=== PATIENT | male | born 1960 | race African-American/Black ===

== ENCOUNTER 2016-05-02 12:47 | Inpatient (IN) | payer OTHER ==
[2016-05-02 15:17] VITALS: BMI 28.3
[2016-05-02] MEDS ORDERED: LOPERAMIDE HCL 2 MG CAPSULE PO PRN (16:19)
[2016-05-02] MEDS ORDERED: ACETAMINOPHEN 325 MG TABLET (FP) PO PRN (16:19)
[2016-05-02] MEDS ORDERED: guaiFENesin/D-METHORPHAN HB 10 ML UNIT-DOSE CUPS PO PRN (16:19)
[2016-05-02] MEDS ORDERED: MAG HYDROX/AL HYDROX/SIMETH 30 ML UNIT-DOSE CUP PO PRN (16:19)
[2016-05-02] MEDS ORDERED: MENTHOL/PHENOL 1 EACH UD MM PRN (16:19)
[2016-05-02] MEDS ORDERED: P-EPHED 60MG/TRIPROLIDI 2.5MG TABLET PO PRN (16:19)
[2016-05-02] MEDS ORDERED: NICOTINE POLACRILEX 2 MG GUM BUC PRN (16:19)
[2016-05-02] MEDS ORDERED: hydrOXYzine PAMOATE 50 MG CAPSULE (FP) PO PRN (16:19)
[2016-05-02] MEDS ORDERED: IBUPROFEN 400 MG TABLET (FP) PO PRN (16:19)
[2016-05-02] MEDS ORDERED: MAGNESIUM CITRATE 300 ML BOTTLE PO PRN (16:19)
[2016-05-02] MEDS ORDERED: MAGNESIUM HYDROX 2400MG/30ML ORAL SUSPENSION 30 ML CUP PO PRN (16:19)
[2016-05-02] MEDS ORDERED: ALBUTEROL SO4 6.7 GM HFA INHALER IH PRN (16:21)
--- NOTE | 2016-05-02 16:28 | HP ---
Admission [facility] Chief Complaint: admitted for inpatient rehab from cocaine Allergies/Adverse Reactions: Allergies Allergy/AdvReac Type Severity Reaction Status Date / Time No Known Allergies Allergy Verified 05/02/16 16:01 History of Present Illness: 55 yo m with h/o opioid dependence on MMTP 180mg daily, last date of medication today, HIV+ not taking medicatons, Hep c+, HTN, DM, depression, epigastric hernia, knee arthritis, chronic low back pain, s/p CVA residual weakness and aphasia, nicotine dependence 1/2 PPD, was last admitted for treatment at [facility] last year for cocaine dependence relapsed to daily use and wishes to attend rehab again. no h/o seizures, no alcohol or other illicit drug use reported. Exam Limitations: No Limitations, Language Barrier, Other (difficult to undertand patient) - Ebola screening Have you traveled outside of the country in the last 21 days: No Have you had contact with anyone from an Ebola affected area: No Have you been sick,other than usual withdrawal symptoms: No Do you have a fever: No - Review of Systems Constitutional: No Symptoms Reported EENT: reports: No Symptoms Reported Respiratory: reports: No Symptoms reported Cardiac: reports: No Symptoms Reported GI: reports: No Symptoms Reported : reports: No Symptoms Reported Musculoskeletal: reports: Back Pain, Joint Pain (knee and back pain), Other ( unable to walk unassisted , uses walker) Integumentary: reports: No Symptoms Reported Neuro: reports: No Symptoms reported Endocrine: reports: No Symptoms Reported Hematology: reports: No Symptoms Reported Psychiatric: reports: Judgement Intact, Mood/Affect Appropiate, Orientated x3, Anxious, Depressed Other Systems: Reviewed and Negative Patient History - Patient Medical History Hx Anemia: Yes (on iron) Hx Asthma: Yes (on albuterol inhaler) Hx Chronic Obstructive Pulmonary Disease (COPD): No Hx Cancer: No Hx Cardiac Disorders: No Hx Congestive Heart Failure: No Hx Hypertension: Yes (on med) Hx Hypercholesterolemia: Yes (on med) Hx Pacemaker: No HX Cerebrovascular Accident: Yes (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) Hx Seizures: No Hx Dementia: No Hx Diabetes: Yes (on metformin) Hx Gastrointestinal Disorders: No Hx Liver Disease: Yes (hepatitis c) Hx Genitourinary Disorders: No Hx Sexually Transmitted Disorders: No Hx Renal Disease (ESRD): No Hx Thyroid Disease: No Hx Human Immunodeficiency Virus (HIV): Yes (since 1985) Hx Hepatitis C: Yes Hx Depression: Yes (on med) Hx Suicide Attempt: No Hx Bipolar Disorder: No Hx Schizophrenia: No - Patient Surgical History Past Surgical History: Yes Hx Neurologic Surgery: No Hx Cataract Extraction: No Hx Cardiac Surgery: No Hx Lung Surgery: No Hx Breast Surgery: No Hx Breast Biopsy: No Hx Abdominal Surgery: Yes (appendectomy at age of 8) Hx Appendectomy: No Hx Cholecystectomy: No Hx Genitourinary Surgery: No Hx Section: No Hx Orthopedic Surgery: No Other Surgical History: left inguinal hernia repair at age of 44 Anesthesia Reaction: No - PPD History Date: 05/06/15 - Reproductive History Patient is a Female of Child Bearing Age (11 -55 yrs old): No Patient : No - Smoking Cessation Smoking history: Current every day smoker Have you smoked in the past 12 months: Yes Aproximately how many cigarettes per day: 10 Cigars Per Day: 0 Hx Chewing Tobacco Use: No Initiated information on smoking cessation: Yes 'Breaking Loose' booklet given: 05/02/16 - Substance & Tx. History Hx Alcohol Use: No Hx Substance Use: Yes Substance Use Type: Cocaine, Heroin Hx Substance [facility] - Substances Abused Cocaine Route: Smoking Frequency: Daily Date of Last Use: 05/01/16 Family Disease History - Family Disease History Family Disease History: Diabetes: Mother (alcohol,), Other: Father ( alcohol,dsa), Mother Admission Physical Exam BHS - Vital Signs Vital Signs: Vital Signs - 24 hr 05/02/16 15:15 Temperature 98.2 F Pulse Rate 65 Respiratory 20 Rate Blood Pressure 118/57 - Physical General Appearance: Yes: No Apparent Distress, Nourished, Appropriately Dressed , Disheveled, Anxious HEENTM: Yes: Within Normal Limits, EOMI, Hearing grossly Normal, Normal ENT Inspection, Normocephalic, Normal Voice, DENICE, Pharynx Normal Respiratory: Yes: Within Normal Limits, Chest Non-Tender, Lungs Clear, Normal Breath Sounds, No Respiratory Distress, No Accessory Muscle Use Neck: Yes: Within Normal Limits, No masses,lesions,Nodules, Supple, Trachea in good position Breast: Yes: Breast Exam Deferred Cardiology: Yes: Within Normal Limits, Regular Rhythm, Regular Rate, S1, S2 Abdominal: Yes: Within Normal Limits, Normal Bowel Sounds, Non Tender, Flat, Soft Genitourinary: Yes: Within Normal Limits Back: Yes: Within Normal Limits, Normal Inspection Musculoskeletal: Yes: full range of Motion, Gait Steady, Pelvis Stable, Back pain, Joint Stiffness Extremities: Yes: Within Normal Limits, Normal Capillary Refill, Normal Inspection, Normal Range of Motion, Other (knee pain) Integumentary: Yes: Within Normal Limits, Normal Color, Dry, Warm Lymphatic: Yes: Within Normal Limits - Diagnostic (1) Cocaine dependence Current Visit: Yes Status: Chronic Qualifiers: Substance use status: uncomplicated Qualified Code(s): F14.20 - Cocaine dependence, uncomplicated Comment: . (2) Hypercholesterolemia Current Visit: No Status: Acute Comment: . (3) Major depressive disorder, recurrent, moderate Current Visit: No Status: Chronic Comment: . (4) Methadone maintenance therapy patient Current Visit: Yes Status: Chronic (5) Nicotine dependence Current Visit: Yes Status: Chronic Comment: . (6) Substance induced mood disorder Current Visit: Yes Status: Acute Comment: . (7) Type 2 diabetes mellitus Current Visit: Yes Status: Chronic Qualifiers: Diabetes mellitus complication status: without complication (8) Use of cane as ambulatory aid Current Visit: Yes Status: Chronic Comment: . (9) CVA, old, hemiparesis Current Visit: No Status: Chronic Comment: . (10) Epigastric hernia Current Visit: No Status: Chronic Comment: . (11) HIV (human immunodeficiency virus infection) Current Visit: Yes Status: Chronic Comment: . (12) Hepatitis C Current Visit: Yes Status: Chronic Comment: . Cleared for Admission [facility] - Detox or Rehab Claeared for Rehab Admission: Yes [facility] Breath Alcohol Content Breath Alcohol Content: 0 Urine Drug Screen - Results Drug Screen Negative: No Urine Drug Screen Results: LYLE-Cocaine, MTD-Methadone
[2016-05-02] MEDS ORDERED: TUBERCULIN PPD 5 TU/0.1ML VIAL ID ONE (19:28)
[2016-05-02] MEDS: NICOTINE 14 MG/24 HOURS TOPICAL PATCH TD SCH (19:30)
--- NOTE | 2016-05-02 20:03 | PN ---
[facility] Progress Note Note: received pharmacist CALL PROVIDER ORDER METFORMIN 850 MG PO DAILY HOME MED SHOWN METFORMIN 850 MG PO DAILY THE STAIN WIPER RECOMMEND FURTHER CLARIFICATION CAN BE MADE DIRECTLY WITH THE PROVIDER WHO ORDER THE METFORMIN 850 MG PO DAILY
[2016-05-02 20:29] LABS: URINE APPEARANCE CLEAR; URINE BILIRUBIN NEGATIVE (NEGATIVE); URINE BLOOD NEGATIVE (NEGATIVE); URINE COLOR YELLOW; URINE GLUCOSE (UA) NEGATIVE (NEGATIVE); URINE KETONE NEGATIVE (NEGATIVE); URINE LEUK ESTERASE NEGATIVE (NEGATIVE); URINE NITRITE NEGATIVE (NEGATIVE); URINE PROTEIN NEGATIVE (NEGATIVE); URINE UROBILINOGEN 4.0 E.U/dl E.U./dl (0.2-1.0)
[2016-05-02] MEDS: THIAMINE HCL 100 MG TABLET (FP) PO SCH (21:22)
[2016-05-02] MEDS ORDERED: diphenhydrAMINE HCL 50 MG CAPSULE PO PRN (22:00)
--- NOTE | 2016-05-03 09:31 | HP ---
Psychiatrist Admission - Data Date of interview: 05/03/16 Admission source: [facility] Identifying data: This is the second admission to [facility], first at for this 55 year old AA male who is single father of 15 independent adults, he is domiciled residing alone [facility], unemployed and supported on SSI benefits. Medical History: Hep C, HIV infection since 1985, diabetes mellitus-type 2, hypercholesterolemia, asthma, HTN and s/p CVA with right sided weakness with speech involvement(1989). Ambulates with a walker. On MMTP 180 and smokes 4 cigarettes a day. Psychiatric History: Patient reports no history of psychiatric hospitalizations , reports he sees the psychiatrist at [facility] outpatient clinic [facility], reports he carries a diagnosis of depression.He currently on seroquel 50 mg/hs , zoloft 150 mg/day and trazodone 50 mg/hs. Physical/Sexual Abuse/Trauma History: Patient denies history of sexual, pohysical and verbal abuse. Vital Signs: Vital Signs - 24 hr 05/02/16 05/02/16 05/03/16 15:15 18:30 00:41 Temperature 98.2 F 98.8 F Pulse Rate 65 67 Respiratory 20 18 18 Rate Blood Pressure 118/57 125/84 05/03/16 05/03/16 03:30 06:47 Temperature 97.8 F Pulse Rate 66 Respiratory 18 16 Rate Blood Pressure 125/72 Allergies/Adverse Reactions: Allergies Allergy/AdvReac Type Severity Reaction Status Date / Time No Known Allergies Allergy Verified 05/02/16 16:01 Date of last physical exam: 05/02/16 Concur with the findings of this exam: Yes - Substance Abuse/Tx History Hx Alcohol Use: No Hx Substance Use: Yes Substance Use Type: Cocaine (reports he uses "as much as I can") Hx Substance Use Treatment: Yes (2014 at 3w) - Admission Criteria Previous failed treatment: Yes Poor recovery environment: Yes Comorbidities: Yes Lacks judgement: Yes Mental Status Exam - Mental Status Exam Alert and Oriented to: Time, Place, Person Cognitive Function: Grossly Intact Patient Appearance: Well Groomed Mood: Hopeful Affect: Mood Congruent Patient Behavior: Appropriate, Cooperative Speech Pattern: Unclear, Slurred (aphasia) Voice Loudness: Normal Thought Process: Intact, Goal Oriented Thought Disorder: Not Present Hallucinations: Denies Suicidal Ideation: Denies Homicidal Ideation: Denies Insight/Judgement: Fair Sleep: Fair Appetite: Fair Muscle strength/Tone: Moderate Hypotonicity Gait/Station: Hemiparetic (right hemiparesis with speech involvement) Psychiatric Findings - Problem List ([place] 1, 2,3) (1) Cocaine dependence Current Visit: Yes Status: Chronic Qualifiers: Substance use status: uncomplicated Qualified Code(s): F14.20 - Cocaine dependence, uncomplicated Comment: . (2) HIV (human immunodeficiency virus infection) Current Visit: Yes Status: Chronic Comment: . (3) Nicotine dependence Current Visit: Yes Status: Chronic Comment: . (4) Type 2 diabetes mellitus Current Visit: Yes Status: Chronic Qualifiers: Diabetes mellitus complication status: without complication (5) MDD (major depressive disorder), recurrent episode, mild Current Visit: Yes Status: Acute - Initial Treatment Plan Initial Treatment Plan: Will continue her current medications, monitor progress as needed.
[2016-05-03] MEDS ORDERED: SERTRALINE HCL 50 MG TABLET (FP) PO SCH (10:00)
[2016-05-03 10:09] LABS: MCH 22.9 pg (25.7-33.7); MEAN CELL VOLUME 71.8 fl (80-96); MEAN PLT VOLUME 9.2 fl (7.5-11.1); PLATELET COUNT 166 K/MM3 (134-434); RDW 15.6 % (11.9-15.9); WHITE BLOOD COUNT 8.4 K/mm3 (4.0-10.0)
[2016-05-03] MEDS: LISINOPRIL 5 MG TABLET (FP) PO SCH (10:20)
[2016-05-03] MEDS: CLOPIDOGREL BISULFATE 75 MG TABLET (FP) PO SCH (10:20)
[2016-05-03] MEDS: PRENATAL VITAMINS W/ FOLIC ACID TABLET (FP) PO SCH (10:20)
[2016-05-03] MEDS: NICOTINE 14 MG/24 HOURS TOPICAL PATCH TD SCH (10:21)
[2016-05-03] MEDS ORDERED: METHADONE HCL 10 MG TABLET PO ONE (10:38)
[2016-05-03 10:40] LABS: ALBUMIN 3.3 g/dl (3.4-5.0); ALK PHOS 110 U/L (45-117); ANION GAP 10 (8-16); BILIRUBIN,TOTAL 0.4 mg/dL (0.2-1.0); CO2 24 mmol/L (21-32); CREATININE 0.9 mg/dL (0.7-1.3); GLUCOSE,RANDOM 92 mg/dL (74-106); SGOT/AST 57 U/L (15-37); SGPT/ALT 40 U/L (12-78); TOT PROT 9.4 g/dl (6.4-8.2)
[2016-05-03] MEDS ORDERED: METHADONE 160 MG, METHADONE 20 MG PO ONE (10:49)
[2016-05-03] MEDS ORDERED: METHADONE HCL 40 MG DISPERSABLE TABLET ONE (10:53)
[2016-05-03] MEDS ORDERED: METHADONE HCL 10 MG TABLET ONE (10:54)
--- NOTE | 2016-05-03 13:20 | EKG ---
Test Reason : Blood Pressure : / mmHG Vent. Rate : 064 BPM Atrial Rate : 064 BPM P-R Int : 134 ms QRS Dur : 096 ms QT Int : 356 ms P-R-T Axes : 050 027 004 degrees QTc Int : 367 ms NORMAL SINUS RHYTHM NONSPECIFIC T WAVE ABNORMALITY ABNORMAL ECG NO PREVIOUS ECGS AVAILABLE Confirmed by PRINCE ENRIQUEZ MD ([id number]) on 05/03/2016 1:20:27 PM Referred By: Confirmed By:PRINCE ENRIQUEZ MD
[2016-05-03] MEDS: QUEtiapine FUMARATE 50 MG TABLET PO SCH (21:33)
[2016-05-03] MEDS: traZODone HCL 50 MG TABLET (FP) PO SCH (21:33)
[2016-05-03] MEDS: THIAMINE HCL 100 MG TABLET (FP) PO SCH (21:33)
[2016-05-04] MEDS ORDERED: METHADONE HCL 40 MG DISPERSABLE TABLET ONE (04:59)
[2016-05-04] MEDS ORDERED: METHADONE HCL 10 MG TABLET ONE (05:00)
[2016-05-04] MEDS ORDERED: METHADONE HCL 40 MG DISPERSABLE TABLET PO SCH (06:00)
[2016-05-04] MEDS: METHADONE 160 MG, METHADONE 20 MG PO SCH (06:38)
[2016-05-04] MEDS: SERTRALINE HCL 50 MG TABLET (FP) PO SCH (10:10)
[2016-05-04] MEDS: CLOPIDOGREL BISULFATE 75 MG TABLET (FP) PO SCH (10:11)
[2016-05-04] MEDS: PRENATAL VITAMINS W/ FOLIC ACID TABLET (FP) PO SCH (10:11)
[2016-05-04] MEDS: LISINOPRIL 5 MG TABLET (FP) PO SCH (10:12)
[2016-05-04] MEDS: NICOTINE 14 MG/24 HOURS TOPICAL PATCH TD SCH (10:12)
[2016-05-04] MEDS: EMTRICITABINE 200MG/TENOFOVIR 300MG PO SCH (15:27)
[2016-05-04] MEDS: DARUNAVIR ETHANOLATE 800 MG TAB PO SCH (15:27)
[2016-05-04] MEDS: RITONAVIR 100 MG TABLET PO SCH (15:27)
[2016-05-04] MEDS: RALTEGRAVIR POTASSIUM 400 MG TAB PO SCH (21:33)
[2016-05-04] MEDS: QUEtiapine FUMARATE 50 MG TABLET PO SCH (21:33)
[2016-05-04] MEDS: THIAMINE HCL 100 MG TABLET (FP) PO SCH (21:33)
[2016-05-04] MEDS: traZODone HCL 50 MG TABLET (FP) PO SCH (21:33)
[2016-05-05] MEDS ORDERED: METHADONE HCL 40 MG DISPERSABLE TABLET ONE (03:10)
[2016-05-05] MEDS ORDERED: METHADONE HCL 10 MG TABLET ONE (03:10)
[2016-05-05] MEDS: METHADONE 160 MG, METHADONE 20 MG PO SCH (06:16)
[2016-05-05] MEDS: PRENATAL VITAMINS W/ FOLIC ACID TABLET (FP) PO SCH (10:12)
[2016-05-05] MEDS: LISINOPRIL 5 MG TABLET (FP) PO SCH (10:12)
[2016-05-05] MEDS: CLOPIDOGREL BISULFATE 75 MG TABLET (FP) PO SCH (10:12)
[2016-05-05] MEDS: SERTRALINE HCL 50 MG TABLET (FP) PO SCH (10:12)
[2016-05-05] MEDS: RALTEGRAVIR POTASSIUM 400 MG TAB PO SCH ×2 (10:12→21:25)
[2016-05-05] MEDS: DARUNAVIR ETHANOLATE 800 MG TAB PO SCH (10:12)
[2016-05-05] MEDS: RITONAVIR 100 MG TABLET PO SCH (10:13)
[2016-05-05] MEDS: EMTRICITABINE 200MG/TENOFOVIR 300MG PO SCH (10:13)
[2016-05-05] MEDS: NICOTINE 14 MG/24 HOURS TOPICAL PATCH TD SCH (10:14)
[2016-05-05] MEDS: THIAMINE HCL 100 MG TABLET (FP) PO SCH (21:24)
[2016-05-05] MEDS: traZODone HCL 50 MG TABLET (FP) PO SCH (21:25)
[2016-05-05] MEDS: QUEtiapine FUMARATE 50 MG TABLET PO SCH (21:25)
[2016-05-06] MEDS ORDERED: METHADONE HCL 40 MG DISPERSABLE TABLET ONE (03:13)
[2016-05-06] MEDS ORDERED: METHADONE HCL 10 MG TABLET ONE (03:14)
[2016-05-06] MEDS: METHADONE 160 MG, METHADONE 20 MG PO SCH (06:39)
[2016-05-06] MEDS: CLOPIDOGREL BISULFATE 75 MG TABLET (FP) PO SCH (09:54)
[2016-05-06] MEDS: DARUNAVIR ETHANOLATE 800 MG TAB PO SCH (09:54)
[2016-05-06] MEDS: SERTRALINE HCL 50 MG TABLET (FP) PO SCH (09:54)
[2016-05-06] MEDS: RALTEGRAVIR POTASSIUM 400 MG TAB PO SCH ×2 (09:54→21:25)
[2016-05-06] MEDS: RITONAVIR 100 MG TABLET PO SCH (09:55)
[2016-05-06] MEDS: LISINOPRIL 5 MG TABLET (FP) PO SCH (09:55)
[2016-05-06] MEDS: PRENATAL VITAMINS W/ FOLIC ACID TABLET (FP) PO SCH (09:56)
[2016-05-06] MEDS: EMTRICITABINE 200MG/TENOFOVIR 300MG PO SCH (09:58)
[2016-05-06] MEDS: NICOTINE 14 MG/24 HOURS TOPICAL PATCH TD SCH (10:02)
[2016-05-06] MEDS: QUEtiapine FUMARATE 50 MG TABLET PO SCH (21:25)
[2016-05-06] MEDS: traZODone HCL 50 MG TABLET (FP) PO SCH (21:25)
[2016-05-06] MEDS: THIAMINE HCL 100 MG TABLET (FP) PO SCH (21:25)
[2016-05-07] MEDS ORDERED: METHADONE HCL 40 MG DISPERSABLE TABLET ONE (03:14)
[2016-05-07] MEDS ORDERED: METHADONE HCL 10 MG TABLET ONE (03:15)
[2016-05-07] MEDS: METHADONE 160 MG, METHADONE 20 MG PO SCH (06:42)
[2016-05-07] MEDS: CLOPIDOGREL BISULFATE 75 MG TABLET (FP) PO SCH (10:20)
[2016-05-07] MEDS: LISINOPRIL 5 MG TABLET (FP) PO SCH (10:20)
[2016-05-07] MEDS: RALTEGRAVIR POTASSIUM 400 MG TAB PO SCH ×2 (10:20→21:29)
[2016-05-07] MEDS: SERTRALINE HCL 50 MG TABLET (FP) PO SCH (10:21)
[2016-05-07] MEDS: NICOTINE 14 MG/24 HOURS TOPICAL PATCH TD SCH (10:21)
[2016-05-07] MEDS: EMTRICITABINE 200MG/TENOFOVIR 300MG PO SCH (10:22)
[2016-05-07] MEDS: PRENATAL VITAMINS W/ FOLIC ACID TABLET (FP) PO SCH (10:22)
[2016-05-07] MEDS: RITONAVIR 100 MG TABLET PO SCH (10:22)
[2016-05-07] MEDS: DARUNAVIR ETHANOLATE 800 MG TAB PO SCH (10:22)
[2016-05-07] MEDS: THIAMINE HCL 100 MG TABLET (FP) PO SCH (21:29)
[2016-05-07] MEDS: traZODone HCL 50 MG TABLET (FP) PO SCH (21:29)
[2016-05-07] MEDS: QUEtiapine FUMARATE 50 MG TABLET PO SCH (21:29)
[2016-05-08] MEDS ORDERED: METHADONE HCL 40 MG DISPERSABLE TABLET ONE (05:45)
[2016-05-08] MEDS ORDERED: METHADONE HCL 10 MG TABLET ONE (05:45)
[2016-05-08] MEDS: METHADONE 160 MG, METHADONE 20 MG PO SCH (06:18)
[2016-05-08] MEDS: SERTRALINE HCL 50 MG TABLET (FP) PO SCH (10:07)
[2016-05-08] MEDS: RITONAVIR 100 MG TABLET PO SCH (10:08)
[2016-05-08] MEDS: PRENATAL VITAMINS W/ FOLIC ACID TABLET (FP) PO SCH (10:08)
[2016-05-08] MEDS: CLOPIDOGREL BISULFATE 75 MG TABLET (FP) PO SCH (10:08)
[2016-05-08] MEDS: EMTRICITABINE 200MG/TENOFOVIR 300MG PO SCH (10:08)
[2016-05-08] MEDS: NICOTINE 14 MG/24 HOURS TOPICAL PATCH TD SCH (10:08)
[2016-05-08] MEDS: RALTEGRAVIR POTASSIUM 400 MG TAB PO SCH ×2 (10:08→21:42)
[2016-05-08] MEDS: DARUNAVIR ETHANOLATE 800 MG TAB PO SCH (10:08)
[2016-05-08] MEDS: LISINOPRIL 5 MG TABLET (FP) PO SCH (10:09)
[2016-05-08] MEDS: traZODone HCL 50 MG TABLET (FP) PO SCH (21:41)
[2016-05-08] MEDS: THIAMINE HCL 100 MG TABLET (FP) PO SCH (21:42)
[2016-05-08] MEDS: QUEtiapine FUMARATE 50 MG TABLET PO SCH (21:42)
[2016-05-09] MEDS ORDERED: METHADONE HCL 40 MG DISPERSABLE TABLET ONE (03:12)
[2016-05-09] MEDS ORDERED: METHADONE HCL 10 MG TABLET ONE (03:12)
[2016-05-09] MEDS: METHADONE 160 MG, METHADONE 20 MG PO SCH (06:27)
[2016-05-09] MEDS: DARUNAVIR ETHANOLATE 800 MG TAB PO SCH (10:11)
[2016-05-09] MEDS: PRENATAL VITAMINS W/ FOLIC ACID TABLET (FP) PO SCH (10:11)
[2016-05-09] MEDS: SERTRALINE HCL 50 MG TABLET (FP) PO SCH (10:11)
[2016-05-09] MEDS: CLOPIDOGREL BISULFATE 75 MG TABLET (FP) PO SCH (10:11)
[2016-05-09] MEDS: RALTEGRAVIR POTASSIUM 400 MG TAB PO SCH ×2 (10:11→21:34)
[2016-05-09] MEDS: EMTRICITABINE 200MG/TENOFOVIR 300MG PO SCH (10:11)
[2016-05-09] MEDS: NICOTINE 14 MG/24 HOURS TOPICAL PATCH TD SCH (10:12)
[2016-05-09] MEDS: LISINOPRIL 5 MG TABLET (FP) PO SCH (10:12)
[2016-05-09] MEDS: RITONAVIR 100 MG TABLET PO SCH (10:12)
[2016-05-09] MEDS: THIAMINE HCL 100 MG TABLET (FP) PO SCH (21:34)
[2016-05-09] MEDS: QUEtiapine FUMARATE 50 MG TABLET PO SCH (21:34)
[2016-05-09] MEDS: traZODone HCL 50 MG TABLET (FP) PO SCH (21:34)
[2016-05-10] MEDS ORDERED: METHADONE HCL 40 MG DISPERSABLE TABLET ONE (05:50)
[2016-05-10] MEDS ORDERED: METHADONE HCL 10 MG TABLET ONE (05:50)
[2016-05-10] MEDS: METHADONE 160 MG, METHADONE 20 MG PO SCH (06:21)
[2016-05-10] MEDS: PRENATAL VITAMINS W/ FOLIC ACID TABLET (FP) PO SCH (10:13)
[2016-05-10] MEDS: DARUNAVIR ETHANOLATE 800 MG TAB PO SCH (10:13)
[2016-05-10] MEDS: CLOPIDOGREL BISULFATE 75 MG TABLET (FP) PO SCH (10:14)
[2016-05-10] MEDS: RITONAVIR 100 MG TABLET PO SCH (10:14)
[2016-05-10] MEDS: RALTEGRAVIR POTASSIUM 400 MG TAB PO SCH ×2 (10:14→21:30)
[2016-05-10] MEDS: EMTRICITABINE 200MG/TENOFOVIR 300MG PO SCH (10:14)
[2016-05-10] MEDS: SERTRALINE HCL 50 MG TABLET (FP) PO SCH (10:14)
[2016-05-10] MEDS: NICOTINE 14 MG/24 HOURS TOPICAL PATCH TD SCH (10:16)
[2016-05-10] MEDS: LISINOPRIL 5 MG TABLET (FP) PO SCH (10:16)
[2016-05-10] MEDS: traZODone HCL 50 MG TABLET (FP) PO SCH (21:30)
[2016-05-10] MEDS: THIAMINE HCL 100 MG TABLET (FP) PO SCH (21:30)
[2016-05-10] MEDS: QUEtiapine FUMARATE 50 MG TABLET PO SCH (21:30)
[2016-05-11] MEDS ORDERED: METHADONE HCL 10 MG TABLET ONE (03:19)
[2016-05-11] MEDS ORDERED: METHADONE HCL 40 MG DISPERSABLE TABLET ONE (03:19)
[2016-05-11] MEDS: METHADONE 160 MG, METHADONE 20 MG PO SCH (06:16)
[2016-05-11] MEDS: EMTRICITABINE 200MG/TENOFOVIR 300MG PO SCH (09:43)
[2016-05-11] MEDS: RITONAVIR 100 MG TABLET PO SCH (09:43)
[2016-05-11] MEDS: SERTRALINE HCL 50 MG TABLET (FP) PO SCH (09:44)
[2016-05-11] MEDS: CLOPIDOGREL BISULFATE 75 MG TABLET (FP) PO SCH (09:44)
[2016-05-11] MEDS: DARUNAVIR ETHANOLATE 800 MG TAB PO SCH (09:44)
[2016-05-11] MEDS: PRENATAL VITAMINS W/ FOLIC ACID TABLET (FP) PO SCH (09:44)
[2016-05-11] MEDS: LISINOPRIL 5 MG TABLET (FP) PO SCH (09:44)
[2016-05-11] MEDS: RALTEGRAVIR POTASSIUM 400 MG TAB PO SCH ×2 (09:44→21:29)
[2016-05-11] MEDS: NICOTINE 14 MG/24 HOURS TOPICAL PATCH TD SCH (09:44)
[2016-05-11] MEDS: traZODone HCL 50 MG TABLET (FP) PO SCH (21:29)
[2016-05-11] MEDS: QUEtiapine FUMARATE 50 MG TABLET PO SCH (21:29)
[2016-05-11] MEDS: THIAMINE HCL 100 MG TABLET (FP) PO SCH (21:29)
[2016-05-12] MEDS ORDERED: METHADONE HCL 10 MG TABLET ONE (04:39)
[2016-05-12] MEDS ORDERED: METHADONE HCL 40 MG DISPERSABLE TABLET ONE (04:39)
[2016-05-12] MEDS: METHADONE 160 MG, METHADONE 20 MG PO SCH (06:16)
[2016-05-12] MEDS: EMTRICITABINE 200MG/TENOFOVIR 300MG PO SCH (09:49)
[2016-05-12] MEDS: RITONAVIR 100 MG TABLET PO SCH (09:49)
[2016-05-12] MEDS: RALTEGRAVIR POTASSIUM 400 MG TAB PO SCH ×2 (09:49→21:33)
[2016-05-12] MEDS: DARUNAVIR ETHANOLATE 800 MG TAB PO SCH (09:49)
[2016-05-12] MEDS: SERTRALINE HCL 50 MG TABLET (FP) PO SCH (09:50)
[2016-05-12] MEDS: PRENATAL VITAMINS W/ FOLIC ACID TABLET (FP) PO SCH (09:50)
[2016-05-12] MEDS: CLOPIDOGREL BISULFATE 75 MG TABLET (FP) PO SCH (09:50)
[2016-05-12] MEDS: LISINOPRIL 5 MG TABLET (FP) PO SCH (09:51)
[2016-05-12] MEDS: NICOTINE 14 MG/24 HOURS TOPICAL PATCH TD SCH (09:51)
[2016-05-12] MEDS: THIAMINE HCL 100 MG TABLET (FP) PO SCH (21:33)
[2016-05-12] MEDS: traZODone HCL 50 MG TABLET (FP) PO SCH (21:33)
[2016-05-12] MEDS: QUEtiapine FUMARATE 50 MG TABLET PO SCH (21:33)
[2016-05-13] MEDS ORDERED: METHADONE HCL 40 MG DISPERSABLE TABLET ONE (03:25)
[2016-05-13] MEDS ORDERED: METHADONE HCL 10 MG TABLET ONE (03:25)
[2016-05-13] MEDS: METHADONE 160 MG, METHADONE 20 MG PO SCH (06:28)
[2016-05-13] MEDS: RALTEGRAVIR POTASSIUM 400 MG TAB PO SCH ×2 (09:56→21:25)
[2016-05-13] MEDS: EMTRICITABINE 200MG/TENOFOVIR 300MG PO SCH (09:56)
[2016-05-13] MEDS: DARUNAVIR ETHANOLATE 800 MG TAB PO SCH (09:56)
[2016-05-13] MEDS: RITONAVIR 100 MG TABLET PO SCH (09:56)
[2016-05-13] MEDS: LISINOPRIL 5 MG TABLET (FP) PO SCH (09:57)
[2016-05-13] MEDS: PRENATAL VITAMINS W/ FOLIC ACID TABLET (FP) PO SCH (09:57)
[2016-05-13] MEDS: SERTRALINE HCL 50 MG TABLET (FP) PO SCH (09:57)
[2016-05-13] MEDS: NICOTINE 14 MG/24 HOURS TOPICAL PATCH TD SCH (09:57)
[2016-05-13] MEDS: CLOPIDOGREL BISULFATE 75 MG TABLET (FP) PO SCH (09:57)
[2016-05-13] MEDS: QUEtiapine FUMARATE 50 MG TABLET PO SCH (21:25)
[2016-05-13] MEDS: THIAMINE HCL 100 MG TABLET (FP) PO SCH (21:25)
[2016-05-13] MEDS: traZODone HCL 50 MG TABLET (FP) PO SCH (21:25)
[2016-05-14] MEDS ORDERED: METHADONE HCL 40 MG DISPERSABLE TABLET ONE (03:37)
[2016-05-14] MEDS ORDERED: METHADONE HCL 10 MG TABLET ONE (03:37)
[2016-05-14] MEDS: METHADONE 160 MG, METHADONE 20 MG PO SCH (06:17)
[2016-05-14] MEDS: RITONAVIR 100 MG TABLET PO SCH (09:53)
[2016-05-14] MEDS: EMTRICITABINE 200MG/TENOFOVIR 300MG PO SCH (09:53)
[2016-05-14] MEDS: DARUNAVIR ETHANOLATE 800 MG TAB PO SCH (09:53)
[2016-05-14] MEDS: RALTEGRAVIR POTASSIUM 400 MG TAB PO SCH ×2 (09:54→21:08)
[2016-05-14] MEDS: PRENATAL VITAMINS W/ FOLIC ACID TABLET (FP) PO SCH (09:54)
[2016-05-14] MEDS: SERTRALINE HCL 50 MG TABLET (FP) PO SCH (09:54)
[2016-05-14] MEDS: CLOPIDOGREL BISULFATE 75 MG TABLET (FP) PO SCH (09:54)
[2016-05-14] MEDS: NICOTINE 14 MG/24 HOURS TOPICAL PATCH TD SCH (09:55)
[2016-05-14] MEDS: LISINOPRIL 5 MG TABLET (FP) PO SCH (09:55)
[2016-05-14] MEDS: traZODone HCL 50 MG TABLET (FP) PO SCH (21:08)
[2016-05-14] MEDS: THIAMINE HCL 100 MG TABLET (FP) PO SCH (21:09)
[2016-05-14] MEDS: QUEtiapine FUMARATE 50 MG TABLET PO SCH (21:09)
[2016-05-15] MEDS ORDERED: METHADONE HCL 40 MG DISPERSABLE TABLET ONE (03:19)
[2016-05-15] MEDS ORDERED: METHADONE HCL 10 MG TABLET ONE (03:20)
[2016-05-15] MEDS: METHADONE 160 MG, METHADONE 20 MG PO SCH (06:19)
[2016-05-15] MEDS: RITONAVIR 100 MG TABLET PO SCH (09:43)
[2016-05-15] MEDS: RALTEGRAVIR POTASSIUM 400 MG TAB PO SCH ×2 (09:43→21:25)
[2016-05-15] MEDS: DARUNAVIR ETHANOLATE 800 MG TAB PO SCH (09:43)
[2016-05-15] MEDS: PRENATAL VITAMINS W/ FOLIC ACID TABLET (FP) PO SCH (09:44)
[2016-05-15] MEDS: EMTRICITABINE 200MG/TENOFOVIR 300MG PO SCH (09:44)
[2016-05-15] MEDS: SERTRALINE HCL 50 MG TABLET (FP) PO SCH (09:44)
[2016-05-15] MEDS: LISINOPRIL 5 MG TABLET (FP) PO SCH (09:45)
[2016-05-15] MEDS: NICOTINE 14 MG/24 HOURS TOPICAL PATCH TD SCH (09:45)
[2016-05-15] MEDS: CLOPIDOGREL BISULFATE 75 MG TABLET (FP) PO SCH (09:45)
[2016-05-15] MEDS: QUEtiapine FUMARATE 50 MG TABLET PO SCH (21:25)
[2016-05-15] MEDS: THIAMINE HCL 100 MG TABLET (FP) PO SCH (21:25)
[2016-05-15] MEDS: traZODone HCL 50 MG TABLET (FP) PO SCH (21:25)
[2016-05-16] MEDS ORDERED: METHADONE HCL 40 MG DISPERSABLE TABLET ONE (03:13)
[2016-05-16] MEDS ORDERED: METHADONE HCL 10 MG TABLET ONE (03:14)
[2016-05-16] MEDS: METHADONE 160 MG, METHADONE 20 MG PO SCH (06:18)
[2016-05-16] MEDS: SERTRALINE HCL 50 MG TABLET (FP) PO SCH (09:59)
[2016-05-16] MEDS: DARUNAVIR ETHANOLATE 800 MG TAB PO SCH (09:59)
[2016-05-16] MEDS: LISINOPRIL 5 MG TABLET (FP) PO SCH (10:00)
[2016-05-16] MEDS: RALTEGRAVIR POTASSIUM 400 MG TAB PO SCH ×2 (10:00→21:11)
[2016-05-16] MEDS: EMTRICITABINE 200MG/TENOFOVIR 300MG PO SCH (10:01)
[2016-05-16] MEDS: NICOTINE 14 MG/24 HOURS TOPICAL PATCH TD SCH (10:01)
[2016-05-16] MEDS: CLOPIDOGREL BISULFATE 75 MG TABLET (FP) PO SCH (10:01)
[2016-05-16] MEDS: RITONAVIR 100 MG TABLET PO SCH (10:01)
[2016-05-16] MEDS: PRENATAL VITAMINS W/ FOLIC ACID TABLET (FP) PO SCH (10:02)
[2016-05-16] MEDS: QUEtiapine FUMARATE 50 MG TABLET PO SCH (21:11)
[2016-05-16] MEDS: THIAMINE HCL 100 MG TABLET (FP) PO SCH (21:11)
[2016-05-16] MEDS: traZODone HCL 50 MG TABLET (FP) PO SCH (21:11)
[2016-05-17] MEDS ORDERED: METHADONE HCL 40 MG DISPERSABLE TABLET ONE (03:12)
[2016-05-17] MEDS ORDERED: METHADONE HCL 10 MG TABLET ONE (03:12)
[2016-05-17] MEDS: METHADONE 160 MG, METHADONE 20 MG PO SCH (06:38)
[2016-05-17] MEDS: SERTRALINE HCL 50 MG TABLET (FP) PO SCH (09:05)
[2016-05-17] MEDS: CLOPIDOGREL BISULFATE 75 MG TABLET (FP) PO SCH (09:05)
[2016-05-17] MEDS: RALTEGRAVIR POTASSIUM 400 MG TAB PO SCH ×2 (09:05→21:47)
[2016-05-17] MEDS: LISINOPRIL 5 MG TABLET (FP) PO SCH (09:05)
[2016-05-17] MEDS: EMTRICITABINE 200MG/TENOFOVIR 300MG PO SCH (09:06)
[2016-05-17] MEDS: PRENATAL VITAMINS W/ FOLIC ACID TABLET (FP) PO SCH (09:06)
[2016-05-17] MEDS: RITONAVIR 100 MG TABLET PO SCH (09:06)
[2016-05-17] MEDS: DARUNAVIR ETHANOLATE 800 MG TAB PO SCH (09:09)
[2016-05-17] MEDS: NICOTINE 14 MG/24 HOURS TOPICAL PATCH TD SCH (09:09)
[2016-05-17] MEDS: traZODone HCL 50 MG TABLET (FP) PO SCH (21:47)
[2016-05-17] MEDS: QUEtiapine FUMARATE 50 MG TABLET PO SCH (21:47)
[2016-05-17] MEDS: THIAMINE HCL 100 MG TABLET (FP) PO SCH (21:47)
[2016-05-18] MEDS ORDERED: METHADONE HCL 10 MG TABLET ONE (05:04)
[2016-05-18] MEDS ORDERED: METHADONE HCL 40 MG DISPERSABLE TABLET ONE (05:04)
[2016-05-18] MEDS: METHADONE 160 MG, METHADONE 20 MG PO SCH (06:20)
[2016-05-18] MEDS: SERTRALINE HCL 50 MG TABLET (FP) PO SCH (09:03)
[2016-05-18] MEDS: LISINOPRIL 5 MG TABLET (FP) PO SCH (09:03)
[2016-05-18] MEDS: PRENATAL VITAMINS W/ FOLIC ACID TABLET (FP) PO SCH (09:03)
[2016-05-18] MEDS: RALTEGRAVIR POTASSIUM 400 MG TAB PO SCH ×2 (09:03→21:54)
[2016-05-18] MEDS: DARUNAVIR ETHANOLATE 800 MG TAB PO SCH (09:03)
[2016-05-18] MEDS: CLOPIDOGREL BISULFATE 75 MG TABLET (FP) PO SCH (09:04)
[2016-05-18] MEDS: RITONAVIR 100 MG TABLET PO SCH (09:05)
[2016-05-18] MEDS: NICOTINE 14 MG/24 HOURS TOPICAL PATCH TD SCH (09:06)
[2016-05-18] MEDS: EMTRICITABINE 200MG/TENOFOVIR 300MG PO SCH (09:10)
[2016-05-18] MEDS: QUEtiapine FUMARATE 50 MG TABLET PO SCH (21:53)
[2016-05-18] MEDS: traZODone HCL 50 MG TABLET (FP) PO SCH (21:53)
[2016-05-18] MEDS: THIAMINE HCL 100 MG TABLET (FP) PO SCH (21:54)
[2016-05-19] MEDS ORDERED: METHADONE HCL 10 MG TABLET ONE (03:14)
[2016-05-19] MEDS ORDERED: METHADONE HCL 40 MG DISPERSABLE TABLET ONE (03:14)
[2016-05-19] MEDS: METHADONE 160 MG, METHADONE 20 MG PO SCH (06:09)
[2016-05-19] MEDS: NICOTINE 14 MG/24 HOURS TOPICAL PATCH TD SCH (09:46)
[2016-05-19] MEDS: LISINOPRIL 5 MG TABLET (FP) PO SCH (09:47)
[2016-05-19] MEDS: SERTRALINE HCL 50 MG TABLET (FP) PO SCH (09:47)
[2016-05-19] MEDS: PRENATAL VITAMINS W/ FOLIC ACID TABLET (FP) PO SCH (09:47)
[2016-05-19] MEDS: CLOPIDOGREL BISULFATE 75 MG TABLET (FP) PO SCH (09:48)
[2016-05-19] MEDS: RITONAVIR 100 MG TABLET PO SCH (09:48)
[2016-05-19] MEDS: RALTEGRAVIR POTASSIUM 400 MG TAB PO SCH ×2 (09:48→21:43)
[2016-05-19] MEDS: DARUNAVIR ETHANOLATE 800 MG TAB PO SCH (09:49)
[2016-05-19] MEDS: EMTRICITABINE 200MG/TENOFOVIR 300MG PO SCH (09:49)
[2016-05-19] MEDS: traZODone HCL 50 MG TABLET (FP) PO SCH (21:40)
[2016-05-19] MEDS: THIAMINE HCL 100 MG TABLET (FP) PO SCH (21:40)
[2016-05-19] MEDS: QUEtiapine FUMARATE 50 MG TABLET PO SCH (21:43)
[2016-05-20] MEDS ORDERED: METHADONE HCL 10 MG TABLET ONE (04:59)
[2016-05-20] MEDS ORDERED: METHADONE HCL 40 MG DISPERSABLE TABLET ONE (04:59)
[2016-05-20] MEDS: METHADONE 160 MG, METHADONE 20 MG PO SCH (06:20)
[2016-05-20] MEDS: RITONAVIR 100 MG TABLET PO SCH (09:59)
[2016-05-20] MEDS: CLOPIDOGREL BISULFATE 75 MG TABLET (FP) PO SCH (10:00)
[2016-05-20] MEDS: LISINOPRIL 5 MG TABLET (FP) PO SCH (10:00)
[2016-05-20] MEDS: PRENATAL VITAMINS W/ FOLIC ACID TABLET (FP) PO SCH (10:00)
[2016-05-20] MEDS: DARUNAVIR ETHANOLATE 800 MG TAB PO SCH (10:00)
[2016-05-20] MEDS: RALTEGRAVIR POTASSIUM 400 MG TAB PO SCH ×2 (10:00→21:22)
[2016-05-20] MEDS: EMTRICITABINE 200MG/TENOFOVIR 300MG PO SCH (10:00)
[2016-05-20] MEDS: NICOTINE 14 MG/24 HOURS TOPICAL PATCH TD SCH (10:01)
[2016-05-20] MEDS: SERTRALINE HCL 50 MG TABLET (FP) PO SCH (10:04)
[2016-05-20] MEDS: QUEtiapine FUMARATE 50 MG TABLET PO SCH (21:22)
[2016-05-20] MEDS: THIAMINE HCL 100 MG TABLET (FP) PO SCH (21:22)
[2016-05-20] MEDS: traZODone HCL 50 MG TABLET (FP) PO SCH (21:22)
[2016-05-21] MEDS ORDERED: METHADONE HCL 10 MG TABLET ONE (03:15)
[2016-05-21] MEDS ORDERED: METHADONE HCL 40 MG DISPERSABLE TABLET ONE (03:15)
[2016-05-21] MEDS: METHADONE 160 MG, METHADONE 20 MG PO SCH (06:41)
[2016-05-21] MEDS: SERTRALINE HCL 50 MG TABLET (FP) PO SCH (10:08)
[2016-05-21] MEDS: CLOPIDOGREL BISULFATE 75 MG TABLET (FP) PO SCH (10:08)
[2016-05-21] MEDS: LISINOPRIL 5 MG TABLET (FP) PO SCH (10:08)
[2016-05-21] MEDS: PRENATAL VITAMINS W/ FOLIC ACID TABLET (FP) PO SCH (10:08)
[2016-05-21] MEDS: RALTEGRAVIR POTASSIUM 400 MG TAB PO SCH ×2 (10:09→21:10)
[2016-05-21] MEDS: DARUNAVIR ETHANOLATE 800 MG TAB PO SCH (10:09)
[2016-05-21] MEDS: EMTRICITABINE 200MG/TENOFOVIR 300MG PO SCH (10:09)
[2016-05-21] MEDS: RITONAVIR 100 MG TABLET PO SCH (10:09)
[2016-05-21] MEDS: NICOTINE 14 MG/24 HOURS TOPICAL PATCH TD SCH (10:11)
[2016-05-21] MEDS: THIAMINE HCL 100 MG TABLET (FP) PO SCH (21:10)
[2016-05-21] MEDS: traZODone HCL 50 MG TABLET (FP) PO SCH (21:10)
[2016-05-21] MEDS: QUEtiapine FUMARATE 50 MG TABLET PO SCH (21:10)
[2016-05-22] MEDS ORDERED: METHADONE HCL 10 MG TABLET ONE (03:09)
[2016-05-22] MEDS ORDERED: METHADONE HCL 40 MG DISPERSABLE TABLET ONE (03:09)
[2016-05-22] MEDS: METHADONE 160 MG, METHADONE 20 MG PO SCH (05:50)
[2016-05-22] MEDS: LISINOPRIL 5 MG TABLET (FP) PO SCH (09:43)
[2016-05-22] MEDS: RALTEGRAVIR POTASSIUM 400 MG TAB PO SCH ×2 (09:44→21:11)
[2016-05-22] MEDS: SERTRALINE HCL 50 MG TABLET (FP) PO SCH (09:44)
[2016-05-22] MEDS: CLOPIDOGREL BISULFATE 75 MG TABLET (FP) PO SCH (09:44)
[2016-05-22] MEDS: EMTRICITABINE 200MG/TENOFOVIR 300MG PO SCH (09:45)
[2016-05-22] MEDS: PRENATAL VITAMINS W/ FOLIC ACID TABLET (FP) PO SCH (09:45)
[2016-05-22] MEDS: DARUNAVIR ETHANOLATE 800 MG TAB PO SCH (09:45)
[2016-05-22] MEDS: RITONAVIR 100 MG TABLET PO SCH (09:45)
[2016-05-22] MEDS: NICOTINE 14 MG/24 HOURS TOPICAL PATCH TD SCH (09:47)
[2016-05-22] MEDS: traZODone HCL 50 MG TABLET (FP) PO SCH (21:11)
[2016-05-22] MEDS: QUEtiapine FUMARATE 50 MG TABLET PO SCH (21:11)
[2016-05-22] MEDS: THIAMINE HCL 100 MG TABLET (FP) PO SCH (21:11)
[2016-05-23] MEDS ORDERED: METHADONE HCL 10 MG TABLET ONE (03:06)
[2016-05-23] MEDS ORDERED: METHADONE HCL 40 MG DISPERSABLE TABLET ONE (03:06)
[2016-05-23] MEDS: METHADONE 160 MG, METHADONE 20 MG PO SCH (06:06)
[2016-05-23] MEDS: EMTRICITABINE 200MG/TENOFOVIR 300MG PO SCH (09:49)
[2016-05-23] MEDS: RITONAVIR 100 MG TABLET PO SCH (09:49)
[2016-05-23] MEDS: RALTEGRAVIR POTASSIUM 400 MG TAB PO SCH ×2 (09:49→21:29)
[2016-05-23] MEDS: DARUNAVIR ETHANOLATE 800 MG TAB PO SCH (09:49)
[2016-05-23] MEDS: LISINOPRIL 5 MG TABLET (FP) PO SCH (09:49)
[2016-05-23] MEDS: NICOTINE 14 MG/24 HOURS TOPICAL PATCH TD SCH (09:50)
[2016-05-23] MEDS: SERTRALINE HCL 50 MG TABLET (FP) PO SCH (09:50)
[2016-05-23] MEDS: CLOPIDOGREL BISULFATE 75 MG TABLET (FP) PO SCH (09:50)
[2016-05-23] MEDS: PRENATAL VITAMINS W/ FOLIC ACID TABLET (FP) PO SCH (09:50)
[2016-05-23] MEDS: THIAMINE HCL 100 MG TABLET (FP) PO SCH (21:29)
[2016-05-23] MEDS: QUEtiapine FUMARATE 50 MG TABLET PO SCH (21:29)
[2016-05-23] MEDS: traZODone HCL 50 MG TABLET (FP) PO SCH (21:29)
[2016-05-24] MEDS ORDERED: METHADONE HCL 40 MG DISPERSABLE TABLET ONE (05:43)
[2016-05-24] MEDS ORDERED: METHADONE HCL 10 MG TABLET ONE (05:44)
[2016-05-24] MEDS: METHADONE 160 MG, METHADONE 20 MG PO SCH (06:15)
[2016-05-24 07:02] VITALS: TEMP 97.8
[2016-05-24] MEDS: SERTRALINE HCL 50 MG TABLET (FP) PO SCH (09:51)
[2016-05-24] MEDS: LISINOPRIL 5 MG TABLET (FP) PO SCH (09:51)
[2016-05-24] MEDS: RALTEGRAVIR POTASSIUM 400 MG TAB PO SCH (09:51)
[2016-05-24] MEDS: CLOPIDOGREL BISULFATE 75 MG TABLET (FP) PO SCH (09:51)
[2016-05-24] MEDS: DARUNAVIR ETHANOLATE 800 MG TAB PO SCH (09:51)
[2016-05-24] MEDS: EMTRICITABINE 200MG/TENOFOVIR 300MG PO SCH (09:52)
[2016-05-24] MEDS: PRENATAL VITAMINS W/ FOLIC ACID TABLET (FP) PO SCH (09:52)
[2016-05-24] MEDS: RITONAVIR 100 MG TABLET PO SCH (09:52)
[2016-05-24] MEDS: NICOTINE 14 MG/24 HOURS TOPICAL PATCH TD SCH (09:54)
--- NOTE | 2016-05-24 09:55 | PN ---
Psychiatric Progress Note Vital Signs: Vital Signs Period Temp Pulse Resp BP Sys/Jessica Pulse Ox Last 24 Hr 97.8 F 68-83 14-20 112/77 Date of Session: 05/24/16 Chief Complaint:: discharge visit HPI: Patient addressed Cocaine and Opioid dependence comorbid with Substance induced mood disorder. ROS: Significant for DM,Hep C. Current Medications: Active Medications Generic Name Dose Route Start Last Admin Trade Name Freq PRN Reason Stop Dose Admin Acetaminophen 650 mg 05/02/16 16:19 Tylenol - PO Q4H PRN PAIN Al Hydroxide/Mg Hydroxide 30 ml 05/02/16 16:19 Mylanta Oral Suspension - PO Q6H PRN DYSPEPSIA Albuterol Sulfate 0 puff 05/02/16 16:21 Ventolin Hfa Inhaler - IH Q4H PRN SHORT OF BREATH/WHEEZING Clopidogrel Bisulfate 75 mg 05/03/16 10:00 05/23/16 09:50 Plavix - PO 75 mg DAILY SIVA Administration Darunavir 800 mg 05/04/16 14:30 05/23/16 09:49 Prezista - PO 800 mg DAILY SIVA Administration Diphenhydramine HCl 50 mg 05/02/16 22:00 05/02/16 21:22 Benadryl - PO 50 mg HSMR1 PRN Administration INSOMNIA Emtricitabine/Tenofovir 1 tab 05/04/16 14:30 05/23/16 09:49 Truvada PO 1 tab DAILY SIVA Administration Eucalyptus/Menthol/Phenol/Sorbitol 1 each 05/02/16 16:19 Cepastat Lozenge - MM Q4H PRN SORE THROAT Guaifenesin 10 ml 05/02/16 16:19 Robitussin Dm - PO Q6H PRN COUGH Hydroxyzine Pamoate 50 mg 05/02/16 16:19 Vistaril - PO Q4H PRN AGITATION Ibuprofen 400 mg 05/02/16 16:19 Motrin - PO Q6H PRN SEVERE PAIN Lisinopril 2.5 mg 05/03/16 10:00 05/23/16 09:49 Prinivil PO 2.5 mg DAILY SIVA Administration Loperamide HCl 4 mg 05/02/16 16:19 Imodium - PO Q6H PRN DIARRHEA Magnesium Citrate 300 ml 05/02/16 16:19 Citroma - PO Q48H PRN CONSTIPATION Magnesium Hydroxide 30 ml 05/02/16 16:19 05/17/16 21:47 Milk Of Magnesia - PO 30 ml DAILY PRN Administration CONSTIPATION Metformin HCl 850 mg 05/03/16 07:00 05/24/16 06:16 Glucophage - PO 850 mg DAILY@0700 SIVA Administration Methadone HCl 160 mg/ 180 mg 05/18/16 06:00 05/24/16 06:15 Methadone HCl 20 mg PO 180 mg DAILY@0600 SIVA Administration Nicotine 14 mg 05/02/16 16:30 05/23/16 09:50 Nicoderm Patch - TD 14 mg DAILY SIVA Administration Nicotine Polacrilex 2 mg 05/02/16 16:19 Nicorette Gum - BUC Q2H PRN NICOTINE REPLACEMENT RX Multivit/Folic Acid/Iron 1 tab 05/03/16 10:00 05/23/16 09:50 Vitamins (Sjr) - PO 1 tab DAILY SIVA Administration Pseudoephedrine/Triprolidine 1 combo 05/02/16 16:19 Actifed - PO TID PRN NASAL CONGESTION Quetiapine Fumarate 50 mg 05/03/16 22:00 05/23/16 21:29 Seroquel - PO 50 mg HS SIVA Administration Raltegravir 400 mg 05/04/16 22:00 05/23/16 21:29 Isentress - PO 400 mg BID SIVA Administration Ritonavir 100 mg 05/04/16 14:30 05/23/16 09:49 Norvir - PO 100 mg DAILY SIVA Administration Sertraline HCl 150 mg 05/03/16 10:05 05/23/16 09:50 Zoloft - PO 150 mg DAILY SIVA Administration Thiamine HCl 100 mg 05/02/16 22:00 05/23/16 21:29 Vitamin B1 - PO 100 mg HS SIVA Administration Trazodone HCl 50 mg 05/03/16 22:00 05/23/16 21:29 Desyrel - PO 50 mg HS SIVA Administration Current Side Effect: No Lab tests ordered: No Lab tests reviewed: Yes Provider note:: Patient completed this program today.He has methis treatment goals and will continue to address his issues on outpatient basis .PAtient continues to find that Trazodone 50 mg po hs,Seroquel 50 mg po hs and Zoloft 150 mg po daily help to reduce his anxiety,mood instability,insomnia.Scripts for 30 days supply provided. Therapy provided focusing on relapse prevention , coping skills,support utilization has been discussed with patient . Patient is stable for discharge today. Total face to face time:: 30 Mental Status Exam - Mental Status Exam Alert and Oriented to: Time, Place, Person Cognitive Function: Grossly Intact Patient Appearance: Well Groomed Mood: Euthymic Patient Behavior: Cooperative Speech Pattern: Clear Voice Loudness: Normal Thought Process: Goal Oriented Thought Disorder: Not Present Hallucinations: Denies Suicidal Ideation: Denies Homicidal Ideation: Denies Insight/Judgement: Fair Sleep: Fair Appetite: Fair Muscle strength/Tone: Normal Gait/Station: Normal Psychiatric Treatment Plan - Problem List (1) Substance induced mood disorder Comment: . (2) Cocaine dependence Qualifiers: Substance use status: uncomplicated Qualified Code(s): F14.20 - Cocaine dependence, uncomplicated Comment: . (3) Hepatitis C Comment: . (5) Nicotine dependence Comment: . (6) Type 2 diabetes mellitus Qualifiers: Diabetes mellitus complication status: without complication
[2016-05-24 10:06] VITALS: BP 118/74; PULSE 86
--- NOTE | 2016-08-02 10:36 | PN ---
[facility] Progress Note Note: patient was discharged on by , please see discharge progress notes
== END 2016-05-24 11:00 | disposition home or self-care (01) | DRG 772 ==
LOC: YASAS 12:47 → Y5N 17:15
PROVIDERS: ADMIT Psychiatry & Neurology Psychiatry; ATTEND Psychiatry & Neurology Psychiatry
PROC: HZ42ZZZ Group Counseling for Substance Abuse Treatment, Cognitive-Behavioral (ICD-10-PCS; principal; 2016-05-02)
DX: F14.20 Cocaine dependence, uncomplicated (principal); F11.20 Opioid dependence, uncomplicated; F19.24 Other psychoactive substance dependence with psychoactive substance-induced mood disorder; F33.0 Major depressive disorder, recurrent, mild; F17.210 Nicotine dependence, cigarettes, uncomplicated; E78.00 Pure hypercholesterolemia, unspecified; E11.9 Type 2 diabetes mellitus without complications; B18.2 Chronic viral hepatitis C; Z21 Asymptomatic human immunodeficiency virus [HIV] infection status; J45.909 Unspecified asthma, uncomplicated; I10 Essential (primary) hypertension; R26.2 Difficulty in walking, not elsewhere classified; Z99.89 Dependence on other enabling machines and devices; I69.351 Hemiplegia and hemiparesis following cerebral infarction affecting right dominant side; K43.9 Ventral hernia without obstruction or gangrene
CPT/HCPCS: 36415; 80053; 81003; 85027; 86593; 93005; 93010

== ENCOUNTER 2017-01-04 12:43 | Inpatient (IN) | payer OTHER ==
[2017-01-04 14:39] VITALS: BMI 29.5
--- NOTE | 2017-01-04 17:17 | HP ---
Admission [facility] Chief Complaint: requesting inpatient rehab for cocaine Allergies/Adverse Reactions: Allergies Allergy/AdvReac Type Severity Reaction Status Date / Time No Known Allergies Allergy Verified 01/04/17 17:19 History of Present Illness: 56yo m with h/o cocaine dependence last admission to [facility] 04/2016 PMHx HIV+ /AIDS on meds, Hep c+ cleared virus with treatment, MDD, MMTP 190mg dialy ldm today, dm, HTN, GERD, elevated cholesterol, asthma, nicotine dependence <10/day , denies recent alcohol or oall other illicit drug use. no h/o seizures, dts, no suicidal ideation at this time, no suicide attempts in past. Exam Limitations: No Limitations - Ebola screening Have you traveled outside of the country in the last 21 days: No Have you had contact with anyone from an Ebola affected area: No Have you been sick,other than usual withdrawal symptoms: No Do you have a fever: No - Review of Systems Constitutional: No Symptoms Reported EENT: reports: No Symptoms Reported Respiratory: reports: No Symptoms reported GI: reports: No Symptoms Reported : reports: No Symptoms Reported Musculoskeletal: reports: Back Pain (pincehd nerve uses walker to ambualate), Muscle Pain Integumentary: reports: No Symptoms Reported Neuro: reports: Other (8 bucio i npast causeing dysarthria) Endocrine: reports: No Symptoms Reported Hematology: reports: No Symptoms Reported Psychiatric: reports: Depressed Patient History - Patient Medical History Hx Anemia: Yes (on iron) Hx Asthma: No Hx Chronic Obstructive Pulmonary Disease (COPD): No Hx Cancer: No Hx Cardiac Disorders: No Hx Congestive Heart Failure: No Hx Hypertension: No Hx Hypercholesterolemia: Yes (on med) Hx Pacemaker: No HX Cerebrovascular Accident: Yes (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) Hx Seizures: No Hx Dementia: No Hx Diabetes: Yes Hx Gastrointestinal Disorders: No Hx Liver Disease: Yes (hepatitis c) Hx Genitourinary Disorders: No Hx Sexually Transmitted Disorders: No Hx Renal Disease (ESRD): No Hx Thyroid Disease: No Hx Human Immunodeficiency Virus (HIV): Yes (since 1985) Hx Hepatitis C: Yes Hx Depression: Yes (Major Depressive) Hx Suicide Attempt: No Hx Bipolar Disorder: No Hx Schizophrenia: No - Patient Surgical History Past Surgical History: Yes Hx Neurologic Surgery: No Hx Cataract Extraction: No Hx Cardiac Surgery: No Hx Lung Surgery: No Hx Breast Surgery: No Hx Breast Biopsy: No Hx Abdominal Surgery: Yes (appendectomy at age of 8) Hx Appendectomy: No Hx Cholecystectomy: No Hx Genitourinary Surgery: No Hx Section: No Hx Orthopedic Surgery: No Other Surgical History: left inguinal hernia repair at age of 44 Anesthesia Reaction: No - PPD History Date: 05/04/16 PPD to be Administered?: No - Reproductive History Patient is a Female of Child Bearing Age (11 -55 yrs old): No Patient : No - Smoking Cessation Smoking history: Current every day smoker Have you smoked in the past 12 months: Yes Aproximately how many cigarettes per day: 10 Cigars Per Day: 0 Hx Chewing Tobacco Use: No Initiated information on smoking cessation: Yes 'Breaking Loose' booklet given: 01/04/17 - Substance & Tx. History Hx Alcohol Use: Yes Hx Substance Use: Yes Substance Use Type: Alcohol, Cocaine, Heroin, Opiates, Prescribed Hx Substance Use [facility]: [facility] - Substances Abused Cocaine Route: Smoking Frequency: Daily Amount used: as much as he has he spends Age of first use: 18 Date of Last Use: 01/03/17 Family Disease History - Family Disease History Family Disease History: Diabetes: Mother (alcohol,), Other: Father ( alcohol,dsa), Mother Admission Physical Exam BHS - Vital Signs Vital Signs: Vital Signs - 24 hr 01/04/17 14:37 Temperature 98.3 F Pulse Rate 70 Respiratory 18 Rate Blood Pressure 114/78 - Physical General Appearance: Yes: No Apparent Distress, Nourished, Appropriately Dressed , Disheveled, Other (ambulatign with walker because of past strokes from cocaine use) HEENTM: Yes: EOMI, Hearing grossly Normal, Normal ENT Inspection, Normocephalic , DENICE, Pharynx Normal, Tm's normal, Gaytan, Other (dysarthria post stroke) Respiratory: Yes: Within Normal Limits, Chest Non-Tender, Lungs Clear, Normal Breath Sounds, No Respiratory Distress, No Accessory Muscle Use Neck: Yes: Within Normal Limits, No masses,lesions,Nodules, Supple, Trachea in good position Breast: Yes: Breast Exam Deferred Cardiology: Yes: Within Normal Limits, Regular Rhythm, Regular Rate, S1, S2 Abdominal: Yes: Normal Bowel Sounds, Non Tender, Soft, Protuberent, Distended Genitourinary: Yes: Within Normal Limits Back: Yes: Decreased Range of Motion Musculoskeletal: Yes: Back pain, Other (unsteady gait post stroke) Extremities: Yes: Normal Capillary Refill, Normal Inspection, Normal Range of Motion, Non-Tender, Other (right sided weakness post stroke) Neurological: Yes: resource manager II-XII NML intact, Fully Oriented, Alert, Motor Strength 5/5, Normal Response, Depressed Affect Integumentary: Yes: Track Gaytan (let arm old no scars no abscess no erythema, no actie idu) Lymphatic: Yes: Within Normal Limits - Addiitonal Findings: medically stable no signs of withdrawal - Diagnostic (1) Hypercholesterolemia Current Visit: No Status: Chronic Comment: . (2) MDD (major depressive disorder), recurrent episode, mild Current Visit: No Status: Chronic (3) Substance induced mood disorder Current Visit: Yes Status: Acute Comment: . (4) CVA, old, hemiparesis Current Visit: Yes Status: Chronic Comment: . (5) Cocaine dependence Current Visit: Yes Status: Acute Qualifiers: Substance use status: uncomplicated Qualified Code(s): F14.20 - Cocaine dependence, uncomplicated; F14.20 - Cocaine dependence, uncomplicated; F14.20 - Cocaine dependence, uncomplicated Comment: . (6) HIV (human immunodeficiency virus infection) Current Visit: Yes Status: Chronic Comment: . (7) Hepatitis C Current Visit: Yes Status: Chronic Comment: . (8) Major depressive disorder, recurrent, moderate Current Visit: Yes Status: Chronic Comment: . (9) Methadone maintenance therapy patient Current Visit: Yes Status: Chronic (10) Nicotine dependence Current Visit: Yes Status: Chronic Qualifiers: Nicotine product type: cigarettes Comment: . (11) Type 2 diabetes mellitus Current Visit: Yes Status: Chronic Qualifiers: Diabetes mellitus complication status: without complication Cleared for Admission S - Detox or Rehab Claeared for Rehab Admission: Yes [facility] Breath Alcohol Content Breath Alcohol Content: 0 Urine Drug Screen - Results Drug Screen Negative: No Urine Drug Screen Results: LYLE-Cocaine, MTD-Methadone Inpatient Rehab Admission - Initial Determination Are CD services needed?: Yes Free of communicable disease: Yes Not in need of hospitalization: Yes - Rehab Admission Criteria Comorbidities: Yes Patient is meeting Inpatient Rehab admission criteria:: Yes
[2017-01-04] MEDS ORDERED: LOPERAMIDE HCL 2 MG CAPSULE PO PRN (17:19)
[2017-01-04] MEDS ORDERED: MENTHOL/PHENOL 1 EACH UD MM PRN (17:19)
[2017-01-04] MEDS ORDERED: hydrOXYzine PAMOATE 50 MG CAPSULE (FP) PO PRN (17:19)
[2017-01-04] MEDS ORDERED: MAG HYDROX/AL HYDROX/SIMETH 30 ML UNIT-DOSE CUP PO PRN (17:19)
[2017-01-04] MEDS ORDERED: ACETAMINOPHEN 325 MG TABLET (FP) PO PRN (17:19)
[2017-01-04] MEDS ORDERED: MAGNESIUM CITRATE 300 ML BOTTLE PO PRN (17:19)
[2017-01-04] MEDS ORDERED: IBUPROFEN 400 MG TABLET (FP) PO PRN (17:19)
[2017-01-04] MEDS ORDERED: P-EPHED 60MG/TRIPROLIDI 2.5MG TABLET PO PRN (17:19)
[2017-01-04] MEDS ORDERED: NICOTINE POLACRILEX 2 MG GUM BUC PRN (17:19)
[2017-01-04] MEDS ORDERED: guaiFENesin/D-METHORPHAN HB 10 ML UNIT-DOSE CUPS PO PRN (17:19)
[2017-01-04] MEDS ORDERED: ALBUTEROL SO4 18 GM HFA INHALER IH PRN (17:20)
[2017-01-04] MEDS: THIAMINE HCL 100 MG TABLET (FP) PO SCH (21:54)
[2017-01-04] MEDS: NICOTINE 14 MG/24 HOURS TOPICAL PATCH TD SCH (21:55)
[2017-01-04] MEDS: RALTEGRAVIR POTASSIUM 400 MG TAB PO SCH (21:55)
[2017-01-04] MEDS ORDERED: traZODone HCL 50 MG TABLET (FP) PO SCH (22:00)
[2017-01-04] MEDS ORDERED: diphenhydrAMINE HCL 50 MG CAPSULE PO PRN (22:00)
--- NOTE | 2017-01-04 22:00 | PN ---
S Progress Note Note: received nurse call that the patient does not have his own medication with him, pravastatin dose not available at this time continue rehab
[2017-01-04 22:19] LABS: URINE APPEARANCE CLEAR; URINE BILIRUBIN NEGATIVE (NEGATIVE); URINE BLOOD NEGATIVE (NEGATIVE); URINE COLOR YELLOW; URINE GLUCOSE (UA) NEGATIVE (NEGATIVE); URINE KETONE NEGATIVE (NEGATIVE); URINE NITRITE NEGATIVE (NEGATIVE); URINE PROTEIN NEGATIVE (NEGATIVE); URINE UROBILINOGEN NEGATIVE mg/dL (0.2-1.0)
[2017-01-04 23:09] LABS: URINE LEUK ESTERASE Negative (NEGATIVE)
[2017-01-05] MEDS: metFORMIN HCL 500 MG TABLET (FP) PO SCH (06:12)
--- NOTE | 2017-01-05 06:31 | HP ---
Psychiatrist Admission - Data Date of interview: 01/05/17 Admission source: Self-referred Identifying data: This is the third [facility] admission for single Black male, father of 15 children, unemployed on SSI, domiciled living in a studio apartment in [place] Medical History: Significant for HIV infection since 1985(AIDS) diabetes mellitus-type 2, hypercholesterolemia, bronchial asthma, hepatitis C, hypertension, GERD, anemia and s/p CVA with right sided weakness (1989).( Ambulates with a cane), and history of surgewry for removal of appendix & left inguinal hernia repair. Patient is on methadone 190mg/day. Smokes 10 cigarettes daily Psychiatric History: Patient reports being diagnosed with MDD 4-5 years ago by a psychiatrist at [facility]. Reports that he still receives psychiatric outpatient services there and he is currently prescribed Zoloft 150 mg po daily , Seroquel 50 mg po HS and Trazadone 50 mg po HS. Denies history of previous psychiatric hospitalization or suicidal attempt. At present reports feeling fine and sleeping well by taking Trazadone. Physical/Sexual Abuse/Trauma History: Patient denies history of sexual, pohysical and verbal abuse. Denies DV relationship Additional Comment: Reports history of multiple arrests including one felony conviction. No parole/probation currently Vital Signs: Vital Signs - 24 hr 01/04/17 01/05/17 01/05/17 14:37 00:30 03:30 Temperature 98.3 F Pulse Rate 70 Respiratory 18 18 18 Rate Blood Pressure 114/78 Allergies/Adverse Reactions: Allergies Allergy/AdvReac Type Severity Reaction Status Date / Time No Known Allergies Allergy Verified 01/04/17 17:19 Date of last physical exam: 01/04/17 Concur with the findings of this exam: Yes - Substance Abuse/Tx History Hx Alcohol Use: No Hx Substance Use: Yes Substance Use Type: Cocaine (Started smoking crack cocaine at age 18, consumes as much as he can spend daily. Last smoked on 01/03/17) Hx Substance Use Treatment: Yes (Patient attends [facility] 190 mg/day of methadone. 2 previous inpt rehab @) Mental Status Exam - Mental Status Exam Alert and Oriented to: Time, Place, Person Cognitive Function: Fair Patient Appearance: Well Groomed Mood: Hopeful, Euthymic Patient Behavior: Cooperative Speech Pattern: Clear Voice Loudness: Normal Thought Process: Intact, Goal Oriented Thought Disorder: Not Present Hallucinations: Denies Suicidal Ideation: Denies Homicidal Ideation: Denies Insight/Judgement: Fair Sleep: Poorly Appetite: Good Muscle strength/Tone: Normal Gait/Station: Hemiparetic (use a walker due S/P CVA with righr hemiparesis) Psychiatric Findings - Problem List ([place] 1, 2,3) (1) Cocaine dependence Current Visit: Yes Status: Acute Qualifiers: Substance use status: uncomplicated Qualified Code(s): F14.20 - Cocaine dependence, uncomplicated; F14.20 - Cocaine dependence, uncomplicated; F14.20 - Cocaine dependence, uncomplicated Comment: . (2) Nicotine dependence Current Visit: Yes Status: Chronic Qualifiers: Nicotine product type: cigarettes Comment: . (3) Opioid dependence on agonist therapy Current Visit: Yes Status: Acute (4) Major depressive disorder, recurrent, moderate Current Visit: Yes Status: Chronic Comment: . (5) CVA, old, hemiparesis Current Visit: Yes Status: Chronic Comment: . (6) HIV (human immunodeficiency virus infection) Current Visit: Yes Status: Chronic Comment: . (7) Hepatitis C Current Visit: Yes Status: Chronic Comment: . (8) Type 2 diabetes mellitus Current Visit: Yes Status: Chronic Qualifiers: Diabetes mellitus complication status: without complication (9) Hypercholesterolemia Current Visit: No Status: Chronic Comment: . - Initial Treatment Plan Initial Treatment Plan: 1) Continue Zoloft 150 mg po daily, Seroquel 50 mg po HS and Trazadone 50 mg po HS. 2) Monitor progress
[2017-01-05] MEDS ORDERED: METHADONE HCL 40 MG DISPERSABLE TABLET PO SCH (07:15)
[2017-01-05] MEDS ORDERED: METHADONE HCL 10 MG TABLET ONE (07:34)
[2017-01-05] MEDS ORDERED: METHADONE HCL 40 MG DISPERSABLE TABLET ONE (07:34)
[2017-01-05] MEDS: METHADONE 160 MG, METHADONE 30 MG PO SCH (07:40)
[2017-01-05] MEDS: PRENATAL VITAMINS W/ FOLIC ACID TABLET (FP) PO SCH (09:44)
[2017-01-05] MEDS: EMTRICITABINE 200MG/TENOFOVIR 300MG PO SCH (09:45)
[2017-01-05] MEDS: CLOPIDOGREL BISULFATE 75 MG TABLET (FP) PO SCH (09:45)
[2017-01-05] MEDS: RITONAVIR 100 MG TABLET PO SCH (09:45)
[2017-01-05] MEDS: DARUNAVIR ETHANOLATE 800 MG TAB PO SCH (09:45)
[2017-01-05] MEDS: RALTEGRAVIR POTASSIUM 400 MG TAB PO SCH ×2 (09:45→21:26)
[2017-01-05] MEDS: NICOTINE 14 MG/24 HOURS TOPICAL PATCH TD SCH (09:45)
--- NOTE | 2017-01-05 09:50 | EKG ---
Test Reason : Blood Pressure : / mmHG Vent. Rate : 066 BPM Atrial Rate : 066 BPM P-R Int : 140 ms QRS Dur : 082 ms QT Int : 350 ms P-R-T Axes : 052 022 -09 degrees QTc Int : 366 ms NORMAL SINUS RHYTHM NONSPECIFIC T WAVE ABNORMALITY ABNORMAL ECG WHEN COMPARED WITH ECG OF 02-MAY-2016 23:23, NO SIGNIFICANT CHANGE WAS FOUND Confirmed by EELNI ROMERO MD ([id number]) on 01/05/2017 9:50:13 AM Referred By: Confirmed By:ELENI ROMERO MD
[2017-01-05 09:51] LABS: MCHC 31.2 g/dl (32.0-35.9); MEAN CELL VOLUME 73.6 fl (80-96); MEAN PLT VOLUME 8.5 fl (7.5-11.1); PLATELET COUNT 152 K/MM3 (134-434); RDW 14.6 % (11.9-15.9); WHITE BLOOD COUNT 7.8 K/mm3 (4.0-10.0)
[2017-01-05 09:54] LABS: ANION GAP 6 (8-16); CO2 26 mmol/L (21-32); CREATININE 0.9 mg/dL (0.7-1.3); GLUCOSE,RANDOM 158 mg/dL (74-106); SGPT/ALT 49 U/L (12-78)
[2017-01-05 10:06] LABS: ALK PHOS 101 U/L (45-117); BILIRUBIN,TOTAL 0.3 mg/dL (0.2-1.0); SGOT/AST 68 U/L (15-37); TOT PROT 8.7 g/dl (6.4-8.2)
[2017-01-05] MEDS: SERTRALINE HCL 50 MG TABLET (FP) PO SCH (11:31)
[2017-01-05] MEDS ORDERED: FLU VACCINE QUAD 60 MCG/0.5 ML (MDV 17-18) IM ONE (12:00)
[2017-01-05] MEDS ORDERED: PNEUMOC 13-VAL CONJ-DIP CRM/PF 0.5 ML DISP.SYRIN IM ONE (12:00)
[2017-01-05] MEDS: ATORVASTATIN CA 10 MG TABLET (FP) PO SCH ×2 (15:31→21:26)
[2017-01-05] MEDS: LISINOPRIL 5 MG TABLET (FP) PO SCH (15:38)
[2017-01-05] MEDS: RANITIDINE HCL 150 MG TABLET (FP) PO SCH (17:02)
[2017-01-05] MEDS: traZODone HCL 50 MG TABLET (FP) PO SCH (21:26)
[2017-01-05] MEDS: THIAMINE HCL 100 MG TABLET (FP) PO SCH (21:26)
[2017-01-05] MEDS: QUEtiapine FUMARATE 50 MG TABLET PO SCH (21:27)
[2017-01-06] MEDS ORDERED: METHADONE HCL 10 MG TABLET ONE (04:14)
[2017-01-06] MEDS ORDERED: METHADONE HCL 40 MG DISPERSABLE TABLET ONE (04:14)
[2017-01-06] MEDS: METHADONE 160 MG, METHADONE 30 MG PO SCH (06:12)
[2017-01-06] MEDS: metFORMIN HCL 500 MG TABLET (FP) PO SCH (06:13)
[2017-01-06] MEDS: SERTRALINE HCL 50 MG TABLET (FP) PO SCH (09:47)
[2017-01-06] MEDS: PRENATAL VITAMINS W/ FOLIC ACID TABLET (FP) PO SCH (09:47)
[2017-01-06] MEDS: RANITIDINE HCL 150 MG TABLET (FP) PO SCH (09:47)
[2017-01-06] MEDS: RALTEGRAVIR POTASSIUM 400 MG TAB PO SCH ×2 (09:47→21:54)
[2017-01-06] MEDS: CLOPIDOGREL BISULFATE 75 MG TABLET (FP) PO SCH (09:47)
[2017-01-06] MEDS: RITONAVIR 100 MG TABLET PO SCH (09:48)
[2017-01-06] MEDS: LISINOPRIL 5 MG TABLET (FP) PO SCH (09:49)
[2017-01-06] MEDS: DARUNAVIR ETHANOLATE 800 MG TAB PO SCH (09:49)
[2017-01-06] MEDS: EMTRICITABINE 200MG/TENOFOVIR 300MG PO SCH (09:49)
[2017-01-06] MEDS: NICOTINE 14 MG/24 HOURS TOPICAL PATCH TD SCH (09:51)
[2017-01-06] MEDS: ATORVASTATIN CA 10 MG TABLET (FP) PO SCH (21:54)
[2017-01-06] MEDS: traZODone HCL 50 MG TABLET (FP) PO SCH (21:54)
[2017-01-06] MEDS: QUEtiapine FUMARATE 50 MG TABLET PO SCH (21:54)
[2017-01-06] MEDS: THIAMINE HCL 100 MG TABLET (FP) PO SCH (21:55)
[2017-01-07] MEDS ORDERED: METHADONE HCL 10 MG TABLET ONE (04:07)
[2017-01-07] MEDS ORDERED: METHADONE HCL 40 MG DISPERSABLE TABLET ONE (04:08)
[2017-01-07] MEDS: METHADONE 160 MG, METHADONE 30 MG PO SCH (06:12)
[2017-01-07] MEDS: metFORMIN HCL 500 MG TABLET (FP) PO SCH (07:56)
[2017-01-07] MEDS: NICOTINE 14 MG/24 HOURS TOPICAL PATCH TD SCH (09:35)
[2017-01-07] MEDS: DARUNAVIR ETHANOLATE 800 MG TAB PO SCH (09:36)
[2017-01-07] MEDS: RANITIDINE HCL 150 MG TABLET (FP) PO SCH (09:36)
[2017-01-07] MEDS: SERTRALINE HCL 50 MG TABLET (FP) PO SCH (09:36)
[2017-01-07] MEDS: RITONAVIR 100 MG TABLET PO SCH (09:36)
[2017-01-07] MEDS: PRENATAL VITAMINS W/ FOLIC ACID TABLET (FP) PO SCH (09:36)
[2017-01-07] MEDS: CLOPIDOGREL BISULFATE 75 MG TABLET (FP) PO SCH (09:36)
[2017-01-07] MEDS: LISINOPRIL 5 MG TABLET (FP) PO SCH (09:36)
[2017-01-07] MEDS: RALTEGRAVIR POTASSIUM 400 MG TAB PO SCH ×2 (09:36→21:48)
[2017-01-07] MEDS: EMTRICITABINE 200MG/TENOFOVIR 300MG PO SCH (09:36)
[2017-01-07] MEDS: QUEtiapine FUMARATE 50 MG TABLET PO SCH (21:48)
[2017-01-07] MEDS: ATORVASTATIN CA 10 MG TABLET (FP) PO SCH (21:48)
[2017-01-07] MEDS: traZODone HCL 50 MG TABLET (FP) PO SCH (21:48)
[2017-01-07] MEDS: THIAMINE HCL 100 MG TABLET (FP) PO SCH (21:49)
[2017-01-08] MEDS ORDERED: METHADONE HCL 10 MG TABLET ONE (05:44)
[2017-01-08] MEDS ORDERED: METHADONE HCL 40 MG DISPERSABLE TABLET ONE (05:45)
[2017-01-08] MEDS: METHADONE 160 MG, METHADONE 30 MG PO SCH (06:17)
[2017-01-08] MEDS: metFORMIN HCL 500 MG TABLET (FP) PO SCH (06:18)
[2017-01-08] MEDS: RALTEGRAVIR POTASSIUM 400 MG TAB PO SCH ×2 (09:45→21:27)
[2017-01-08] MEDS: RANITIDINE HCL 150 MG TABLET (FP) PO SCH (09:45)
[2017-01-08] MEDS: PRENATAL VITAMINS W/ FOLIC ACID TABLET (FP) PO SCH (09:45)
[2017-01-08] MEDS: SERTRALINE HCL 50 MG TABLET (FP) PO SCH (09:45)
[2017-01-08] MEDS: CLOPIDOGREL BISULFATE 75 MG TABLET (FP) PO SCH (09:45)
[2017-01-08] MEDS: DARUNAVIR ETHANOLATE 800 MG TAB PO SCH (09:45)
[2017-01-08] MEDS: EMTRICITABINE 200MG/TENOFOVIR 300MG PO SCH (09:45)
[2017-01-08] MEDS: RITONAVIR 100 MG TABLET PO SCH (09:46)
[2017-01-08] MEDS: LISINOPRIL 5 MG TABLET (FP) PO SCH (09:47)
[2017-01-08] MEDS: NICOTINE 14 MG/24 HOURS TOPICAL PATCH TD SCH (09:47)
[2017-01-08] MEDS: ATORVASTATIN CA 10 MG TABLET (FP) PO SCH (21:27)
[2017-01-08] MEDS: traZODone HCL 50 MG TABLET (FP) PO SCH (21:27)
[2017-01-08] MEDS: QUEtiapine FUMARATE 50 MG TABLET PO SCH (21:27)
[2017-01-08] MEDS: THIAMINE HCL 100 MG TABLET (FP) PO SCH (21:27)
[2017-01-09] MEDS ORDERED: METHADONE HCL 40 MG DISPERSABLE TABLET ONE (01:35)
[2017-01-09] MEDS ORDERED: METHADONE HCL 10 MG TABLET ONE (01:35)
[2017-01-09] MEDS: METHADONE 160 MG, METHADONE 30 MG PO SCH (06:32)
[2017-01-09] MEDS: metFORMIN HCL 500 MG TABLET (FP) PO SCH (07:15)
[2017-01-09] MEDS: DARUNAVIR ETHANOLATE 800 MG TAB PO SCH (09:59)
[2017-01-09] MEDS: PRENATAL VITAMINS W/ FOLIC ACID TABLET (FP) PO SCH (09:59)
[2017-01-09] MEDS: SERTRALINE HCL 50 MG TABLET (FP) PO SCH (09:59)
[2017-01-09] MEDS: RALTEGRAVIR POTASSIUM 400 MG TAB PO SCH ×2 (09:59→21:19)
[2017-01-09] MEDS: CLOPIDOGREL BISULFATE 75 MG TABLET (FP) PO SCH (10:00)
[2017-01-09] MEDS: RANITIDINE HCL 150 MG TABLET (FP) PO SCH (10:00)
[2017-01-09] MEDS: NICOTINE 14 MG/24 HOURS TOPICAL PATCH TD SCH (10:00)
[2017-01-09] MEDS: RITONAVIR 100 MG TABLET PO SCH (10:00)
[2017-01-09] MEDS: EMTRICITABINE 200MG/TENOFOVIR 300MG PO SCH (10:01)
[2017-01-09] MEDS: LISINOPRIL 5 MG TABLET (FP) PO SCH (10:02)
[2017-01-09] MEDS: QUEtiapine FUMARATE 50 MG TABLET PO SCH (21:19)
[2017-01-09] MEDS: THIAMINE HCL 100 MG TABLET (FP) PO SCH (21:19)
[2017-01-09] MEDS: ATORVASTATIN CA 10 MG TABLET (FP) PO SCH (21:19)
[2017-01-09] MEDS: traZODone HCL 50 MG TABLET (FP) PO SCH (21:20)
[2017-01-10] MEDS ORDERED: METHADONE HCL 10 MG TABLET ONE (04:20)
[2017-01-10] MEDS ORDERED: METHADONE HCL 40 MG DISPERSABLE TABLET ONE (04:20)
[2017-01-10] MEDS: METHADONE 160 MG, METHADONE 30 MG PO SCH (06:34)
[2017-01-10] MEDS: metFORMIN HCL 500 MG TABLET (FP) PO SCH (06:39)
[2017-01-10] MEDS: NICOTINE 14 MG/24 HOURS TOPICAL PATCH TD SCH (09:50)
[2017-01-10] MEDS: CLOPIDOGREL BISULFATE 75 MG TABLET (FP) PO SCH (09:51)
[2017-01-10] MEDS: EMTRICITABINE 200MG/TENOFOVIR 300MG PO SCH (09:51)
[2017-01-10] MEDS: RANITIDINE HCL 150 MG TABLET (FP) PO SCH (09:51)
[2017-01-10] MEDS: RITONAVIR 100 MG TABLET PO SCH (09:51)
[2017-01-10] MEDS: PRENATAL VITAMINS W/ FOLIC ACID TABLET (FP) PO SCH (09:51)
[2017-01-10] MEDS: SERTRALINE HCL 50 MG TABLET (FP) PO SCH (09:51)
[2017-01-10] MEDS: RALTEGRAVIR POTASSIUM 400 MG TAB PO SCH ×2 (09:52→21:54)
[2017-01-10] MEDS: DARUNAVIR ETHANOLATE 800 MG TAB PO SCH (09:52)
[2017-01-10] MEDS: LISINOPRIL 5 MG TABLET (FP) PO SCH (09:53)
[2017-01-10] MEDS: ATORVASTATIN CA 10 MG TABLET (FP) PO SCH (21:54)
[2017-01-10] MEDS: THIAMINE HCL 100 MG TABLET (FP) PO SCH (21:54)
[2017-01-10] MEDS: traZODone HCL 50 MG TABLET (FP) PO SCH (21:54)
[2017-01-10] MEDS: QUEtiapine FUMARATE 50 MG TABLET PO SCH (21:54)
[2017-01-11] MEDS ORDERED: METHADONE HCL 10 MG TABLET ONE (03:59)
[2017-01-11] MEDS ORDERED: METHADONE HCL 40 MG DISPERSABLE TABLET ONE (03:59)
[2017-01-11] MEDS: metFORMIN HCL 500 MG TABLET (FP) PO SCH (06:20)
[2017-01-11] MEDS: METHADONE 160 MG, METHADONE 30 MG PO SCH (06:21)
[2017-01-11] MEDS: CLOPIDOGREL BISULFATE 75 MG TABLET (FP) PO SCH (09:43)
[2017-01-11] MEDS: DARUNAVIR ETHANOLATE 800 MG TAB PO SCH (09:43)
[2017-01-11] MEDS: PRENATAL VITAMINS W/ FOLIC ACID TABLET (FP) PO SCH (09:43)
[2017-01-11] MEDS: RALTEGRAVIR POTASSIUM 400 MG TAB PO SCH ×2 (09:43→21:30)
[2017-01-11] MEDS: RANITIDINE HCL 150 MG TABLET (FP) PO SCH (09:44)
[2017-01-11] MEDS: SERTRALINE HCL 50 MG TABLET (FP) PO SCH (09:44)
[2017-01-11] MEDS: LISINOPRIL 5 MG TABLET (FP) PO SCH (09:45)
[2017-01-11] MEDS: RITONAVIR 100 MG TABLET PO SCH (09:45)
[2017-01-11] MEDS: EMTRICITABINE 200MG/TENOFOVIR 300MG PO SCH (09:45)
[2017-01-11] MEDS: NICOTINE 14 MG/24 HOURS TOPICAL PATCH TD SCH (09:48)
[2017-01-11] MEDS: THIAMINE HCL 100 MG TABLET (FP) PO SCH (21:29)
[2017-01-11] MEDS: ATORVASTATIN CA 10 MG TABLET (FP) PO SCH (21:29)
[2017-01-11] MEDS: traZODone HCL 50 MG TABLET (FP) PO SCH (21:29)
[2017-01-11] MEDS: QUEtiapine FUMARATE 50 MG TABLET PO SCH (21:30)
[2017-01-12] MEDS ORDERED: METHADONE HCL 40 MG DISPERSABLE TABLET ONE (06:05)
[2017-01-12] MEDS ORDERED: METHADONE HCL 10 MG TABLET ONE (06:05)
[2017-01-12] MEDS: METHADONE 160 MG, METHADONE 30 MG PO SCH (06:24)
[2017-01-12] MEDS: metFORMIN HCL 500 MG TABLET (FP) PO SCH (07:21)
[2017-01-12] MEDS: LISINOPRIL 5 MG TABLET (FP) PO SCH (09:40)
[2017-01-12] MEDS: CLOPIDOGREL BISULFATE 75 MG TABLET (FP) PO SCH (09:40)
[2017-01-12] MEDS: DARUNAVIR ETHANOLATE 800 MG TAB PO SCH (09:40)
[2017-01-12] MEDS: PRENATAL VITAMINS W/ FOLIC ACID TABLET (FP) PO SCH (09:40)
[2017-01-12] MEDS: SERTRALINE HCL 50 MG TABLET (FP) PO SCH (09:40)
[2017-01-12] MEDS: RANITIDINE HCL 150 MG TABLET (FP) PO SCH (09:40)
[2017-01-12] MEDS: RALTEGRAVIR POTASSIUM 400 MG TAB PO SCH ×2 (09:40→21:18)
[2017-01-12] MEDS: EMTRICITABINE 200MG/TENOFOVIR 300MG PO SCH (09:41)
[2017-01-12] MEDS: NICOTINE 14 MG/24 HOURS TOPICAL PATCH TD SCH (09:42)
[2017-01-12] MEDS: RITONAVIR 100 MG TABLET PO SCH (09:43)
[2017-01-12] MEDS: MAGNESIUM HYDROX 2400MG/30ML ORAL SUSPENSION 30 ML CUP PO PRN (13:32)
[2017-01-12] MEDS: QUEtiapine FUMARATE 50 MG TABLET PO SCH (21:18)
[2017-01-12] MEDS: ATORVASTATIN CA 10 MG TABLET (FP) PO SCH (21:18)
[2017-01-12] MEDS: traZODone HCL 50 MG TABLET (FP) PO SCH (21:18)
[2017-01-12] MEDS: THIAMINE HCL 100 MG TABLET (FP) PO SCH (21:18)
[2017-01-13] MEDS ORDERED: METHADONE HCL 40 MG DISPERSABLE TABLET ONE (05:08)
[2017-01-13] MEDS ORDERED: METHADONE HCL 10 MG TABLET ONE (05:08)
[2017-01-13] MEDS: METHADONE 160 MG, METHADONE 30 MG PO SCH (06:28)
[2017-01-13] MEDS: metFORMIN HCL 500 MG TABLET (FP) PO SCH (06:29)
[2017-01-13] MEDS: RALTEGRAVIR POTASSIUM 400 MG TAB PO SCH ×2 (09:31→21:25)
[2017-01-13] MEDS: DARUNAVIR ETHANOLATE 800 MG TAB PO SCH (09:31)
[2017-01-13] MEDS: SERTRALINE HCL 50 MG TABLET (FP) PO SCH (09:31)
[2017-01-13] MEDS: LISINOPRIL 5 MG TABLET (FP) PO SCH (09:31)
[2017-01-13] MEDS: PRENATAL VITAMINS W/ FOLIC ACID TABLET (FP) PO SCH (09:31)
[2017-01-13] MEDS: RANITIDINE HCL 150 MG TABLET (FP) PO SCH (09:31)
[2017-01-13] MEDS: CLOPIDOGREL BISULFATE 75 MG TABLET (FP) PO SCH (09:31)
[2017-01-13] MEDS: NICOTINE 14 MG/24 HOURS TOPICAL PATCH TD SCH (09:32)
[2017-01-13] MEDS: EMTRICITABINE 200MG/TENOFOVIR 300MG PO SCH (09:32)
[2017-01-13] MEDS: RITONAVIR 100 MG TABLET PO SCH (09:32)
[2017-01-13] MEDS: QUEtiapine FUMARATE 50 MG TABLET PO SCH (21:25)
[2017-01-13] MEDS: traZODone HCL 50 MG TABLET (FP) PO SCH (21:25)
[2017-01-13] MEDS: THIAMINE HCL 100 MG TABLET (FP) PO SCH (21:25)
[2017-01-13] MEDS: ATORVASTATIN CA 10 MG TABLET (FP) PO SCH (21:25)
[2017-01-14] MEDS ORDERED: METHADONE HCL 10 MG TABLET ONE (05:47)
[2017-01-14] MEDS ORDERED: METHADONE HCL 40 MG DISPERSABLE TABLET ONE (05:47)
[2017-01-14] MEDS: METHADONE 160 MG, METHADONE 30 MG PO SCH (06:10)
[2017-01-14] MEDS: metFORMIN HCL 500 MG TABLET (FP) PO SCH (07:33)
[2017-01-14] MEDS: SERTRALINE HCL 50 MG TABLET (FP) PO SCH (09:43)
[2017-01-14] MEDS: PRENATAL VITAMINS W/ FOLIC ACID TABLET (FP) PO SCH (09:43)
[2017-01-14] MEDS: CLOPIDOGREL BISULFATE 75 MG TABLET (FP) PO SCH (09:43)
[2017-01-14] MEDS: RANITIDINE HCL 150 MG TABLET (FP) PO SCH (09:44)
[2017-01-14] MEDS: RALTEGRAVIR POTASSIUM 400 MG TAB PO SCH ×2 (09:44→21:18)
[2017-01-14] MEDS: EMTRICITABINE 200MG/TENOFOVIR 300MG PO SCH (09:44)
[2017-01-14] MEDS: RITONAVIR 100 MG TABLET PO SCH (09:44)
[2017-01-14] MEDS: LISINOPRIL 5 MG TABLET (FP) PO SCH (09:44)
[2017-01-14] MEDS: NICOTINE 14 MG/24 HOURS TOPICAL PATCH TD SCH (09:44)
[2017-01-14] MEDS: DARUNAVIR ETHANOLATE 800 MG TAB PO SCH (09:44)
[2017-01-14] MEDS: THIAMINE HCL 100 MG TABLET (FP) PO SCH (21:17)
[2017-01-14] MEDS: traZODone HCL 50 MG TABLET (FP) PO SCH (21:17)
[2017-01-14] MEDS: ATORVASTATIN CA 10 MG TABLET (FP) PO SCH (21:18)
[2017-01-14] MEDS: QUEtiapine FUMARATE 50 MG TABLET PO SCH (21:18)
[2017-01-15] MEDS ORDERED: METHADONE HCL 10 MG TABLET ONE (03:05)
[2017-01-15] MEDS ORDERED: METHADONE HCL 40 MG DISPERSABLE TABLET ONE (03:06)
[2017-01-15] MEDS: METHADONE 160 MG, METHADONE 30 MG PO SCH (06:10)
[2017-01-15] MEDS: metFORMIN HCL 500 MG TABLET (FP) PO SCH (06:12)
[2017-01-15] MEDS: CLOPIDOGREL BISULFATE 75 MG TABLET (FP) PO SCH (09:39)
[2017-01-15] MEDS: PRENATAL VITAMINS W/ FOLIC ACID TABLET (FP) PO SCH (09:39)
[2017-01-15] MEDS: RALTEGRAVIR POTASSIUM 400 MG TAB PO SCH ×2 (09:39→21:12)
[2017-01-15] MEDS: NICOTINE 14 MG/24 HOURS TOPICAL PATCH TD SCH (09:39)
[2017-01-15] MEDS: RANITIDINE HCL 150 MG TABLET (FP) PO SCH (09:39)
[2017-01-15] MEDS: EMTRICITABINE 200MG/TENOFOVIR 300MG PO SCH (09:40)
[2017-01-15] MEDS: RITONAVIR 100 MG TABLET PO SCH (09:40)
[2017-01-15] MEDS: DARUNAVIR ETHANOLATE 800 MG TAB PO SCH (09:40)
[2017-01-15] MEDS: LISINOPRIL 5 MG TABLET (FP) PO SCH (09:40)
[2017-01-15] MEDS: SERTRALINE HCL 50 MG TABLET (FP) PO SCH (09:40)
[2017-01-15] MEDS: THIAMINE HCL 100 MG TABLET (FP) PO SCH (21:12)
[2017-01-15] MEDS: QUEtiapine FUMARATE 50 MG TABLET PO SCH (21:12)
[2017-01-15] MEDS: ATORVASTATIN CA 10 MG TABLET (FP) PO SCH (21:12)
[2017-01-15] MEDS: traZODone HCL 50 MG TABLET (FP) PO SCH (21:12)
[2017-01-16] MEDS ORDERED: METHADONE HCL 40 MG DISPERSABLE TABLET ONE (04:18)
[2017-01-16] MEDS ORDERED: METHADONE HCL 10 MG TABLET ONE (04:18)
[2017-01-16] MEDS: METHADONE 160 MG, METHADONE 30 MG PO SCH (06:20)
[2017-01-16] MEDS: metFORMIN HCL 500 MG TABLET (FP) PO SCH (08:00)
[2017-01-16] MEDS: RITONAVIR 100 MG TABLET PO SCH (09:59)
[2017-01-16] MEDS: PRENATAL VITAMINS W/ FOLIC ACID TABLET (FP) PO SCH (09:59)
[2017-01-16] MEDS: DARUNAVIR ETHANOLATE 800 MG TAB PO SCH (09:59)
[2017-01-16] MEDS: RANITIDINE HCL 150 MG TABLET (FP) PO SCH (09:59)
[2017-01-16] MEDS: RALTEGRAVIR POTASSIUM 400 MG TAB PO SCH ×2 (09:59→21:25)
[2017-01-16] MEDS: EMTRICITABINE 200MG/TENOFOVIR 300MG PO SCH (09:59)
[2017-01-16] MEDS: SERTRALINE HCL 50 MG TABLET (FP) PO SCH (09:59)
[2017-01-16] MEDS: CLOPIDOGREL BISULFATE 75 MG TABLET (FP) PO SCH (09:59)
[2017-01-16] MEDS: LISINOPRIL 5 MG TABLET (FP) PO SCH (09:59)
[2017-01-16] MEDS: NICOTINE 14 MG/24 HOURS TOPICAL PATCH TD SCH (10:01)
[2017-01-16] MEDS: MAGNESIUM HYDROX 2400MG/30ML ORAL SUSPENSION 30 ML CUP PO PRN (14:25)
[2017-01-16] MEDS ORDERED: ONDANSETRON *ODT* 4 MG TABLET SL ONE (15:16)
[2017-01-16] MEDS ORDERED: ONDANSETRON *ODT* 4 MG TABLET SL PRN (15:16)
[2017-01-16] MEDS: traZODone HCL 50 MG TABLET (FP) PO SCH (21:25)
[2017-01-16] MEDS: ATORVASTATIN CA 10 MG TABLET (FP) PO SCH (21:25)
[2017-01-16] MEDS: THIAMINE HCL 100 MG TABLET (FP) PO SCH (21:25)
[2017-01-16] MEDS: QUEtiapine FUMARATE 50 MG TABLET PO SCH (21:25)
[2017-01-17] MEDS ORDERED: METHADONE HCL 10 MG TABLET ONE (05:26)
[2017-01-17] MEDS ORDERED: METHADONE HCL 40 MG DISPERSABLE TABLET ONE (05:27)
[2017-01-17] MEDS: metFORMIN HCL 500 MG TABLET (FP) PO SCH (06:15)
[2017-01-17] MEDS: METHADONE 160 MG, METHADONE 30 MG PO SCH (06:15)
[2017-01-17] MEDS: RALTEGRAVIR POTASSIUM 400 MG TAB PO SCH ×2 (09:52→21:33)
[2017-01-17] MEDS: RANITIDINE HCL 150 MG TABLET (FP) PO SCH (09:52)
[2017-01-17] MEDS: SERTRALINE HCL 50 MG TABLET (FP) PO SCH (09:52)
[2017-01-17] MEDS: CLOPIDOGREL BISULFATE 75 MG TABLET (FP) PO SCH (09:52)
[2017-01-17] MEDS: DARUNAVIR ETHANOLATE 800 MG TAB PO SCH (09:52)
[2017-01-17] MEDS: NICOTINE 14 MG/24 HOURS TOPICAL PATCH TD SCH (09:53)
[2017-01-17] MEDS: EMTRICITABINE 200MG/TENOFOVIR 300MG PO SCH (09:53)
[2017-01-17] MEDS: LISINOPRIL 5 MG TABLET (FP) PO SCH (09:53)
[2017-01-17] MEDS: PRENATAL VITAMINS W/ FOLIC ACID TABLET (FP) PO SCH (09:53)
[2017-01-17] MEDS: RITONAVIR 100 MG TABLET PO SCH (09:53)
[2017-01-17] MEDS: ATORVASTATIN CA 10 MG TABLET (FP) PO SCH (21:32)
[2017-01-17] MEDS: THIAMINE HCL 100 MG TABLET (FP) PO SCH (21:32)
[2017-01-17] MEDS: traZODone HCL 50 MG TABLET (FP) PO SCH (21:32)
[2017-01-17] MEDS: QUEtiapine FUMARATE 50 MG TABLET PO SCH (21:33)
[2017-01-18] MEDS ORDERED: METHADONE HCL 10 MG TABLET ONE (05:37)
[2017-01-18] MEDS ORDERED: METHADONE HCL 40 MG DISPERSABLE TABLET ONE (05:37)
[2017-01-18] MEDS: METHADONE 160 MG, METHADONE 30 MG PO SCH (06:10)
[2017-01-18] MEDS: metFORMIN HCL 500 MG TABLET (FP) PO SCH (08:37)
[2017-01-18] MEDS: RALTEGRAVIR POTASSIUM 400 MG TAB PO SCH ×2 (09:37→21:21)
[2017-01-18] MEDS: LISINOPRIL 5 MG TABLET (FP) PO SCH (09:37)
[2017-01-18] MEDS: CLOPIDOGREL BISULFATE 75 MG TABLET (FP) PO SCH (09:37)
[2017-01-18] MEDS: SERTRALINE HCL 50 MG TABLET (FP) PO SCH (09:38)
[2017-01-18] MEDS: PRENATAL VITAMINS W/ FOLIC ACID TABLET (FP) PO SCH (09:38)
[2017-01-18] MEDS: DARUNAVIR ETHANOLATE 800 MG TAB PO SCH (09:38)
[2017-01-18] MEDS: RANITIDINE HCL 150 MG TABLET (FP) PO SCH (09:40)
[2017-01-18] MEDS: NICOTINE 14 MG/24 HOURS TOPICAL PATCH TD SCH (09:42)
[2017-01-18] MEDS: RITONAVIR 100 MG TABLET PO SCH (10:49)
[2017-01-18] MEDS: EMTRICITABINE 200MG/TENOFOVIR 300MG PO SCH (10:50)
--- NOTE | 2017-01-18 12:12 | PN ---
Psychiatric Progress Note Vital Signs: Vital Signs Period Temp Pulse Resp BP Sys/Jessica Pulse Ox Last 24 Hr 98.1 F 76 16-18 110/61 Date of Session: 01/18/17 Chief Complaint:: Discharge Note HPI: Patient addressing Cocaine Dependence comorbid with opod Dependence on Agonist Therapy, Nicotine Dependence, MDD, recurrent moderate ROS: HTN, Hyperlipidemia, type 2 DM, Asthma, GERD, Hep C, HIV+/AIDS, S/P old CVA with hemiparesis Current Medications: Active Medications Generic Name Dose Route Start Last Admin Trade Name Freq PRN Reason Stop Dose Admin Acetaminophen 650 mg 01/04/17 17:19 Tylenol - PO Q4H PRN PAIN Al Hydroxide/Mg Hydroxide 30 ml 01/04/17 17:19 Mylanta Oral Suspension - PO Q6H PRN DYSPEPSIA Albuterol Sulfate 0 puff 01/04/17 17:20 Ventolin Hfa Inhaler - IH Q4H PRN SHORT OF BREATH/WHEEZING Atorvastatin Calcium 10 mg 01/04/17 22:00 01/17/17 21:32 Lipitor - PO 10 mg HS SIVA Administration Clopidogrel Bisulfate 75 mg 01/05/17 10:00 01/18/17 09:37 Plavix - PO 75 mg DAILY SIVA Administration Darunavir 800 mg 01/05/17 10:00 01/18/17 09:38 Prezista - PO 800 mg DAILY SIVA Administration Diphenhydramine HCl 50 mg 01/04/17 22:00 Benadryl - PO HSMR1 PRN INSOMNIA Emtricitabine/Tenofovir 1 tab 01/05/17 10:00 01/17/17 09:53 Truvada PO 1 tab DAILY SIVA Administration Eucalyptus/Menthol/Phenol/Sorbitol 1 each 01/04/17 17:19 Cepastat Lozenge - MM Q4H PRN SORE THROAT Guaifenesin 10 ml 01/04/17 17:19 Robitussin Dm - PO Q6H PRN COUGH Hydroxyzine Pamoate 50 mg 01/04/17 17:19 Vistaril - PO Q4H PRN AGITATION Ibuprofen 400 mg 01/04/17 17:19 Motrin - PO Q6H PRN SEVERE PAIN Lisinopril 2.5 mg 01/05/17 10:00 01/18/17 09:37 Prinivil PO 2.5 mg DAILY SIVA Administration Loperamide HCl 4 mg 01/04/17 17:19 Imodium - PO Q6H PRN DIARRHEA Magnesium Citrate 300 ml 01/04/17 17:19 Citroma - PO Q48H PRN CONSTIPATION Magnesium Hydroxide 30 ml 01/04/17 17:19 01/16/17 14:25 Milk Of Magnesia - PO 30 ml DAILY PRN Administration CONSTIPATION Metformin HCl 500 mg 01/05/17 07:00 01/18/17 08:37 Glucophage - PO 500 mg DAILY@0700 SIVA Administration Methadone HCl 160 mg/ 190 mg 01/12/17 06:00 01/18/17 06:10 Methadone HCl 30 mg PO 190 mg DAILY@0600 SIVA Administration Nicotine 14 mg 01/04/17 17:30 01/18/17 09:42 Nicoderm Patch - TD 14 mg DAILY SIVA Administration Nicotine Polacrilex 2 mg 01/04/17 17:19 Nicorette Gum - BUC Q2H PRN NICOTINE REPLACEMENT RX Ondansetron HCl 8 mg 01/16/17 15:16 Zofran Odt - SL Q8H PRN NAUSEA AND/OR VOMITING Multivit/Folic Acid/Iron 1 tab 01/05/17 10:00 01/18/17 09:38 Vitamins (Sjr) - PO 1 tab DAILY SIVA Administration Pseudoephedrine/Triprolidine 1 combo 01/04/17 17:19 Actifed - PO TID PRN NASAL CONGESTION Quetiapine Fumarate 50 mg 01/05/17 22:00 01/17/17 21:33 Seroquel - PO 50 mg HS SIVA Administration Raltegravir 400 mg 01/04/17 22:00 01/18/17 09:37 Isentress - PO 400 mg BID SIVA Administration Ranitidine HCl 150 mg 01/05/17 16:00 01/18/17 09:40 Zantac - PO 150 mg DAILY SIVA Administration Ritonavir 100 mg 01/05/17 10:00 01/17/17 09:53 Norvir - PO 100 mg DAILY SIVA Administration Sertraline HCl 150 mg 01/05/17 11:00 01/18/17 09:38 Zoloft - PO 150 mg DAILY SIVA Administration Thiamine HCl 100 mg 01/04/17 22:00 01/17/17 21:32 Vitamin B1 - PO 100 mg HS SIVA Administration Trazodone HCl 50 mg 01/05/17 22:00 01/17/17 21:32 Desyrel - PO 50 mg HS SIVA Administration Current Side Effect: No Lab tests ordered: Yes Lab tests reviewed: Yes Provider note:: Patient will complete this program on 01/19/17. He has met his treatment goals and will continue to address his issues in outpatient treatment at [facility]. 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 He responded well to Zoloft 50 mg po daily, Seroquel 50 mg po HS and Trazadone 50 mg po HS. Scripts for 30 days supply of medications will electronically be transmitted to [facility] at [address] [place] [address] . He is stable for discharge on 01/19/17. Total face to face time:: 35 Mental Status Exam - Mental Status Exam Alert and Oriented to: Time, Place, Person Cognitive Function: Fair Patient Appearance: Well Groomed Mood: Hopeful, Euthymic Affect: Appropriate Patient Behavior: Cooperative Speech Pattern: Slurred, Aphasic Voice Loudness: Normal Thought Process: Intact Thought Disorder: Not Present Hallucinations: Denies Suicidal Ideation: Denies Homicidal Ideation: Denies Insight/Judgement: Fair Sleep: Fair Appetite: Good Muscle strength/Tone: Normal Gait/Station: Normal Psychiatric Treatment Plan - Problem List (1) Cocaine dependence Current Visit: Yes Qualifiers: Substance use status: uncomplicated Qualified Code(s): F14.20 - Cocaine dependence, uncomplicated; F14.20 - Cocaine dependence, uncomplicated; F14.20 - Cocaine dependence, uncomplicated Comment: . (2) Nicotine dependence Current Visit: Yes Qualifiers: Nicotine product type: cigarettes Comment: . (3) Opioid dependence on agonist therapy Current Visit: Yes (4) Major depressive disorder, recurrent, moderate Current Visit: Yes Comment: . (5) CVA, old, hemiparesis Current Visit: Yes Comment: . (6) HIV (human immunodeficiency virus infection) Current Visit: Yes Comment: . (7) Hepatitis C Current Visit: Yes Comment: . (8) Type 2 diabetes mellitus Current Visit: Yes Qualifiers: Diabetes mellitus complication status: without complication (9) Hypercholesterolemia Current Visit: No Comment: . Initial treatment plan: Patient is discharged tomorrow and referred to [facility] for outpatient treatment
[2017-01-18] MEDS: ATORVASTATIN CA 10 MG TABLET (FP) PO SCH (21:20)
[2017-01-18] MEDS: THIAMINE HCL 100 MG TABLET (FP) PO SCH (21:20)
[2017-01-18] MEDS: QUEtiapine FUMARATE 50 MG TABLET PO SCH (21:20)
[2017-01-18] MEDS: traZODone HCL 50 MG TABLET (FP) PO SCH (21:21)
[2017-01-19] MEDS ORDERED: METHADONE HCL 10 MG TABLET ONE (05:00)
[2017-01-19] MEDS ORDERED: METHADONE HCL 40 MG DISPERSABLE TABLET ONE (05:00)
[2017-01-19] MEDS: METHADONE 160 MG, METHADONE 30 MG PO SCH (05:52)
[2017-01-19 06:51] VITALS: BP 128/80; PULSE 82; TEMP 97.7
[2017-01-19] MEDS: metFORMIN HCL 500 MG TABLET (FP) PO SCH (08:43)
[2017-01-19] MEDS: EMTRICITABINE 200MG/TENOFOVIR 300MG PO SCH (09:35)
[2017-01-19] MEDS: RANITIDINE HCL 150 MG TABLET (FP) PO SCH (09:35)
[2017-01-19] MEDS: DARUNAVIR ETHANOLATE 800 MG TAB PO SCH (09:35)
[2017-01-19] MEDS: RITONAVIR 100 MG TABLET PO SCH (09:35)
[2017-01-19] MEDS: SERTRALINE HCL 50 MG TABLET (FP) PO SCH (09:35)
[2017-01-19] MEDS: RALTEGRAVIR POTASSIUM 400 MG TAB PO SCH (09:36)
[2017-01-19] MEDS: NICOTINE 14 MG/24 HOURS TOPICAL PATCH TD SCH (09:36)
[2017-01-19] MEDS: CLOPIDOGREL BISULFATE 75 MG TABLET (FP) PO SCH (09:36)
== END 2017-01-19 09:55 | disposition home or self-care (01) | DRG 772 ==
LOC: YASAS 12:43 → Y3W 17:57
PROVIDERS: ADMIT Psychiatry & Neurology Psychiatry; ATTEND Psychiatry & Neurology Psychiatry
PROC: HZ42ZZZ Group Counseling for Substance Abuse Treatment, Cognitive-Behavioral (ICD-10-PCS; principal; 2017-01-04)
DX: F11.20 Opioid dependence, uncomplicated (principal); F14.20 Cocaine dependence, uncomplicated; F17.210 Nicotine dependence, cigarettes, uncomplicated; F33.1 Major depressive disorder, recurrent, moderate; F19.24 Other psychoactive substance dependence with psychoactive substance-induced mood disorder; B18.2 Chronic viral hepatitis C; K21.9 Gastro-esophageal reflux disease without esophagitis; E78.00 Pure hypercholesterolemia, unspecified; Z21 Asymptomatic human immunodeficiency virus [HIV] infection status; I69.851 Hemiplegia and hemiparesis following other cerebrovascular disease affecting right dominant side; R26.89 Other abnormalities of gait and mobility; Z99.89 Dependence on other enabling machines and devices
CPT/HCPCS: 36415; 80053; 81003; 85027; 86593; 90688; 93005; 93010; G0008